=== PATIENT | female | born 1940 | race Caucasian/White ===

== ENCOUNTER → 2016-11-28 | Outpatient (REF) | payer MEDICARE ==
[2016-11-28 13:47] LABS: TOTAL PROTEIN 6.7 GM/DL (6.4-8.2)
[2016-11-30 12:11] LABS: ALBUMIN 3.89 GM/DL (3.29-5.55); GAMMA GLOBULIN % 11.6 % (11.1-18.8)
== END ==
LOC: M LAB REF 13:05
PROVIDERS: ATTEND Internal Medicine Medical Oncology
DX: D47.2 Monoclonal gammopathy (principal)

== ENCOUNTER → 2017-08-06 | Outpatient (CLI) | payer MEDICARE ==
[2017-08-06 17:42] LABS: BASO # 0.1 10^3/uL (0.0-0.2); BASO % 0.8 % (0.0-1.0); EOS # 0.3 10^3/uL (0.0-0.50); EOS % 4.6 % (0.0-3.0); IMMATURE GRANULOCYTE % 0.3 % (0-0); LYMPH # 1.1 10^3/uL (1.5-4.5); LYMPH % 18.2 % (24.0-44.0); MEAN CORPUSCULAR HEMOGLOBIN 28.3 pg (27.0-33.0); MEAN CORPUSCULAR HGB CONC 31.1 g/dl (32.0-36.5); MONO # 0.4 10^3/uL (0.0-0.8); MONO % 7.5 % (0.0-5.0); NEUTROPHILS % 68.6 % (36.0-66.0); PLATELET COUNT, AUTOMATED 221 10^3/uL (150-450); RED CELL DISTRIBUTION WIDTH 13.8 % (11.5-14.5); WHITE BLOOD COUNT 5.9 10^3/uL (4.0-10.0)
[2017-08-06 17:48] LABS: ALBUMIN 3.7 GM/DL (3.2-5.2); ALBUMIN/GLOBULIN RATIO 1.09 (1.00-1.93); ALKALINE PHOSPHATASE 56 U/L (45-117); ALT/SGPT 21 U/L (12-78); ANION GAP 9 MEQ/L (8-16); AST/SGOT 15 U/L (15-37); BILIRUBIN,TOTAL 0.7 MG/DL (0.2-1.0); BLOOD UREA NITROGEN 29 MG/DL (7-18); CARBON DIOXIDE LEVEL 28 MEQ/L (21-32); CHLORIDE LEVEL 102 MEQ/L (98-107); CREATININE FOR GFR 0.97 MG/DL (0.55-1.02); GLOMERULAR FILTRATION RATE 59.6 (>39); GLUCOSE, FASTING 90 MG/DL (83-110); IMMUNOGLOBULIN G 865 MG/DL (681-1648); IMMUNOGLOBULIN M 28.8 MG/DL (40-230); POTASSIUM SERUM 4.3 MEQ/L (3.5-5.1); SODIUM LEVEL 139 MEQ/L (136-145); TOTAL PROTEIN 7.1 GM/DL (6.4-8.2)
[2017-08-07 12:51] LABS: ALBUMIN % 57.7 % (55.8-66.1); GAMMA GLOBULIN % 11.6 % (11.1-18.8)
[2017-08-09 00:07] LABS: FREE KAPPA LIGHT CHAINS SERUM 15.6 mg/L (3.3-19.4); FREE LAMBDA LIGHT CHAINS SERUM 11.2 mg/L (5.7-26.3); KAPPA/LAMBDA RATIO SERUM 1.39 (0.26-1.65)
== END ==
LOC: M WUC 14:19
PROVIDERS: ATTEND Internal Medicine Medical Oncology
DX: D47.2 Monoclonal gammopathy (principal)

== ENCOUNTER 2017-11-01 11:07 | Observation (INO) | payer MEDICARE ==
[~2017-11-01] VITALS: Ht 162.6 cm; Wt 66.6 kg
[2017-11-01] MEDS ORDERED: SYMB16INH INH (11:24)
[2017-11-01] MEDS ORDERED: RANI150T PO (11:24)
[2017-11-01] MEDS ORDERED: ASPI81TA85 PO (11:24)
[2017-11-01] MEDS ORDERED: VITA1CAP40 PO (11:24)
[2017-11-01] MEDS ORDERED: TRAZ50TA11 PO (11:24)
[2017-11-01] MEDS ORDERED: IRBESARTAN-HCTZ (11:24)
[2017-11-01] MEDS ORDERED: OXYB10TA PO (11:24)
[2017-11-01 12:26] LABS: BASO % 0.8 % (0.0-1.0); EOS # 0.1 10^3/uL (0.0-0.50); IMMATURE GRANULOCYTE % 0.2 % (0-0); LYMPH # 0.6 10^3/uL (1.5-4.5); MEAN CORPUSCULAR HEMOGLOBIN 28.2 pg (27.0-33.0); MEAN CORPUSCULAR HGB CONC 31.8 g/dl (32.0-36.5); MEAN CORPUSCULAR VOLUME 88.6 fl (80.0-96.0); MONO # 0.6 10^3/uL (0.0-0.8); MONO % 11.8 % (0.0-5.0); NEUTROPHILS # 3.6 10^3/uL (1.8-7.7); NEUTROPHILS % 72.2 % (36.0-66.0); PLATELET COUNT, AUTOMATED 197 10^3/uL (150-450); RED CELL DISTRIBUTION WIDTH 13.7 % (11.5-14.5); WHITE BLOOD COUNT 4.9 10^3/uL (4.0-10.0)
[2017-11-01 12:44] LABS: ANION GAP 7 MEQ/L (8-16); BLOOD UREA NITROGEN 17 MG/DL (7-18); CALCIUM LEVEL 8.5 MG/DL (8.8-10.2); CARBON DIOXIDE LEVEL 29 MEQ/L (21-32); CHLORIDE LEVEL 108 MEQ/L (98-107); CREATININE FOR GFR 0.85 MG/DL (0.55-1.02); GLOMERULAR FILTRATION RATE > 60.0 (>39); GLUCOSE, FASTING 97 MG/DL (83-110); MAGNESIUM LEVEL 2.1 MG/DL (1.8-2.4); SODIUM LEVEL 144 MEQ/L (136-145)
[2017-11-01 12:49] LABS: FREE T4 1.16 NG/DL (0.76-1.46)
--- NOTE | 2017-11-01 13:15 | REP ---
Chest x-ray: Two views. History: Shortness of breath and cough. Comparison study: September 12, 2010. Findings: There are scattered granulomatous calcifications in the right lower lobe unchanged. The lungs remain slightly hyperinflated but clear. There is slight blunting of the posterior pleural angles seen on the lateral radiograph. The lateral pleural angles do not appear blunted. I cannot exclude very small amounts of bilateral pleural fluid. Heart is mildly enlarged. Cardiothoracic ratio is 14.6 cm over 26.6 cm. The aorta is calcific and tortuous. Pulmonary vasculature is not increased. EKG monitoring electrodes are seen. No infiltrate is noted. Impression: Mild cardiomegaly and hyperinflation. Slight blunting of the posterior pleural angles. Old granulomatous disease. Signed by Maurisio Campoverde MD 11/01/2017 03:59 P
[2017-11-01 13:30] VITALS: O2SAT 95
[2017-11-01] MEDS ORDERED: MECLIZINE 25 MG TABLET PO ONE (13:45)
[2017-11-01] MEDS ORDERED: NS 500 ML IV ONE (13:45)
--- NOTE | 2017-11-01 14:39 | REP ---
CT BRAIN WITHOUT CONTRAST: HISTORY: Dizziness and vertigo. Evaluate for CVA. No comparison study. FINDINGS: Digital lateral legislative analyst radiograph is unremarkable. Bone window settings demonstrate an intact bony calvarium. There is some vascular calcification. There is a large low density lesion in the left side of the skull base extending down to the anterior edge of the foramen magnum and up into the petrous apex. This low density lesion displays a convex margin towards the CP angle cistern on the left. No intracranial mass lesion is seen. No other bony destructive lesion is seen. This skull base lesion measures 3.2 cm in greatest diameter. Its margins are somewhat ill-defined. It encompasses the carotid canal and the jugular foramen region. There is no evidence of intracranial hemorrhage. No infarct is seen. There are mild small vessel changes in the periventricular white matter bilaterally. No extra-axial fluid collection seen. 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 Differential possibilities include metastasis, glomus tumor, myelomatous lesion. Consider radionuclide bone scan and MRI scanning without and with IV gadolinium. Signed by Maurisio Campoverde MD 11/01/2017 04:00 P
[2017-11-01] MEDS ORDERED: LORazepam 2 MG/ML VIAL (J2060) IV ONE (15:00)
[2017-11-01] MEDS ORDERED: ONDANSETRON 4MG/2ML VIAL (J2405) IV PRN (15:15)
[2017-11-01] MEDS ORDERED: BISACODYL 5 MG TAB PO PRN (15:15)
[2017-11-01] MEDS ORDERED: ZINC50TA PO (15:17)
[2017-11-01] MEDS ORDERED: MAGN400T5 PO (15:17)
[2017-11-01] MEDS ORDERED: VITMTA PO (15:17)
--- NOTE | 2017-11-01 15:48 | HPEPDOC ---
[facility] Medical History & Physical Date of Admission Nov 01, 2017 History and Physical ATTENDING: Dr. jaimes PCP: Dr Blanca Clark [facility] Dr Hebert. [employer] Dr Peralta CC: vertigo HPI: 77yoF who reports to ED with vertigo. Reports dizziness and weakness since sunday with nausea and diarrhea past 24 hrs. No vomiting. Pt states mild PACE this AM, resolved. States she had neck pain a few days ago, resolved currently. No vision changes, dysarthria, dysphagia, weakness, paresthesia. Denies any fevers, chills, CP, SOB, cough, palpitations, abdominal pain, changes bladder habits. Upon presentation to the hospital the patient was found to have Vertigo/weakness , thus the hospitalist team was consulted. PMHx: OAB COPD GERD anemia- Follows yearly with Dr Hebert. HTN. Follows with Dr Peralta PSHX: B/L TL SOCHX: [facility] Marital Status: Kids: x 1 Tobacco use: denies ETOH: denies Advanced directives: none FAMHX: Siblings: Alive, unknown Children: Alive, well ROS: As noted in HPI, otherwise 11pt ROS of systems reviewed and unremarkable. PE: GEN: 77yoF, appears stated age. Well-nourished, well developed. No acute distress. Alert and oriented x 3. Pleasant, interactive. HEENT: Normocephalic, atraumatic. Pupils are equal, round, and reactive to light. Extraocular movements are intact. No nystagmus appreciated. Sclera are nonicteric. Conjunctiva without injection. Nose midline. Nasal turbinates without bogginess. No facial asymmetry. Moist mucous membranes. . Pharynx pink and moist. Neck supple, trachea midline. No lymphadenopathy or thyromegaly appreciated. CHEST: Regular rate and rhythm, +S1, +S2 LUNGS: Clear to auscultation bilaterally. No wheezes, rales, or rhonchi. Breathing appears symmetric and easy. Patient is speaking in full sentences. ABD: Round, soft, non-tender, non-distended. +Bowel sounds throughout. No rebound or guarding. No costovertebral angle tenderness. EXT: Pulses 2+ bilaterally dorsalis pedis and radial. No lower extremity edema appreciated. SKIN: Bandera, dry, warm. No rashes. NEURO: Alert and oriented x 3. Cranial nerves III-XII are intact. No focal deficits appreciated. CXR: 11/01/17 Mild cardiomegaly and hyperinflation. Slight blunting of the posterior pleural angles. Old granulomatous disease CT: There is a 3 cm lytic destructive lesion in the skull base on the left involving the clivus and petrous bone and the anterior margin of the foramen magnum. Differential possibilities include metastasis, glomus tumor, myelomatous lesion. Consider radionuclide bone scan and MRI scanning without and with IV gadolinium. EKG: Flu screen neg. A&P: 77yoF who reports to ED with vertigo. Reports dizziness and weakness since sunday with nausea and diarrhea past 24 hrs. Pt states mild PACE this AM, resolved. States she had neck pain a few days ago, resolved currently. No vision changes, dysarthria, dysphagia, weakness, paresthesia. 1. The patient will be admitted to M/S to Dr. Jaimes's service.Pt is discussed with Dr Ramirez. 2. vertigo. IVF x 1 liter in ED. Meclizine x 1 dose and Pt states sx better. IV Zofran as needed. 3. Weakness. PT eval pending. 4. Lytic lesion skull base. MRI with and W/O pending at this time. 5. OAB. Ditropan. 6. COPD. Cont Symbicort, albuterol as needed. 7. GERD. H2 kaylee. 8. Hypomag. Supplement. Mag level 2.1. 9. H/O anemia. Follows with Dr Hebert. 10. HTN. ASA 81mg daily. Follows with Dr Peralta. DVT prophylaxis. lovenox. The patient is a Full code Vital Signs Vital Signs Date Time Temp Pulse Resp B/P (MAP) Pulse Ox O2 Delivery O2 Flow Rate FiO2 11/01/17 15:10 196/85 (122) 11/01/17 14:40 58 95 11/01/17 13:30 Room Air 11/01/17 11:08 98.9 16 Laboratory Data Labs 24H Laboratory Tests 2 11/01/17 11:48: Immature Granulocyte % (Auto) 0.2H, White Blood Count 4.9, Red Blood Count 3.94L , Hemoglobin 11.1L, Hematocrit 34.9L, Mean Corpuscular Volume 88.6, Mean Corpuscular Hemoglobin 28.2, Mean Corpuscular Hemoglobin Concent 31.8L, Red Cell Distribution Width 13.7, Platelet Count 197, Neutrophils (%) (Auto) 72.2H, Lymphocytes (%) (Auto) 13.0L, Monocytes (%) (Auto) 11.8H, Eosinophils (%) (Auto ) 2.0, Basophils (%) (Auto) 0.8, Neutrophils # (Auto) 3.6, Lymphocytes # (Auto) 0.6L, Monocytes # (Auto) 0.6, Eosinophils # (Auto) 0.1, Basophils # (Auto) 0.0, Immature Granulocyte # (Auto) 0.0, Nucleated Red Blood Cells % (auto) 0.0, Anion Gap 7L, Glomerular Filtration Rate > 60.0, Blood Urea Nitrogen 17, Creatinine 0.85, Sodium Level 144, Potassium Level 4.0, Chloride Level 108H, Carbon Dioxide Level 29, Calcium Level 8.5L, Total Creatine Kinase 47, Magnesium Level 2.1, Creatine Kinase MB 1.0, Creatine Kinase MB Relative Index 2.12, Troponin I < 0.02, Thyroid Stimulating Hormone (TSH) 4.810H, Free Thyroxine 1.16 CBC/BMP Laboratory Tests 11/01/17 11:48 Red Blood Count 3.94 L, Mean Corpuscular Volume 88.6, Mean Corpuscular Hemoglobin 28.2, Mean Corpuscular Hemoglobin Concent 31.8 L, Red Cell Distribution Width 13.7, Neutrophils (%) (Auto) 72.2 H, Lymphocytes (%) (Auto) 13.0 L, Monocytes (%) (Auto) 11.8 H, Eosinophils (%) (Auto) 2.0, Basophils (%) ( Auto) 0.8, Neutrophils # (Auto) 3.6, Lymphocytes # (Auto) 0.6 L, Monocytes # ( Auto) 0.6, Eosinophils # (Auto) 0.1, Basophils # (Auto) 0.0, Calcium Level 8.5 L , Total Creatine Kinase 47 Microbiology Microbiology 11/01/17 Influenza Virus Type A Antigen - Final, Complete 11/01/17 Influenza Virus Type B Antigen - Final, Complete Home Medications Scheduled Aspirin (Aspir-81) 81 Mg Tab, 81 MG PO DAILY Budesonide/Formoterol (Symbicort 160-4.5 Mcg/Act) 60 Puff/Inhaler Aers, 1 PUFF INH BID Ergocalciferol (Vitamin D) 50,000 Unit Cap, 50,000 UNITS PO ASDIRECTED TAKES EVERY OTHER SUNDAY Magnesium Oxide (Magnesium Oxide 400) 400 Mg Tab, 400 MG PO DAILY Multivitamins *[facility] STOCKED* (Thera M Plus *[facility] STOCKED*) 1 Tab Tab, 1 TAB PO DAILY Oxybutynin Chloride (Oxybutynin Chloride ER) 10 Mg Tab, 10 MG PO DAILY Ranitidine HCl (Ranitidine HCl) 150 Mg Tab, 1 TAB PO BID Trazodone HCl (Trazodone HCl) 50 Mg Tab, 150 MG PO QHS Zinc (Zinc) 50 Mg Tab, 50 MG PO DAILY Allergies Coded Allergies: Lisinopril (Verified Adverse Reaction, Mild, DRY COUGH, 11/01/17) Gloria Mcgee Nov 01, 2017 15:48
[2017-11-01] MEDS ORDERED: PROHANCE 279.3MG/ML 15ML VIAL (A9576) As Ordered ONE (16:42)
[2017-11-01 18:51] VITALS: BP 143/65
--- NOTE | 2017-11-01 19:34 | REP ---
MRI BRAIN WITH AND WITHOUT CONTRAST: TECHNIQUE: Multiple sequences obtained in the axial, coronal and sagittal planes prior to and following the intravenous administration of 12 mL ProHance. Correlation made with CT brain today as well as PET/CT 12/08/2010. In the region of the left petrous apex, there is an oval mass which demonstrates hyperintense signal on both T1 and T2-weighted images. There is some central low signal on T2 which may represent hemosiderin. It is somewhat lobulated and measures 2.5 cm in maximum diameter. There is surrounding smooth erosion of the temporal bone. Anteriorly, erosion is seen up to the carotid canal. The mass extends slightly into the left internal auditory canal. There does not appear to be significant enhancement of the mass although there may be some thin rim enhancement. No abnormal signal is seen in the adjacent brain stem. Cerebellum is normal in appearance. There is mid diffuse cerebral atrophy. There are patchy areas of T2 and FLAIR signal hyperintensity in the periventricular white matter bilaterally compatible with chronic small vessel ischemic changes. No acute infarct is seen on ADC or DWI images. Globes are intact. There is mild diffuse mucosal thickening in the paranasal sinuses diffusely. IMPRESSION: Oval mass at the left petrous apex with associated erosion of the temporal bone. Erosion is seen up to the carotid canal on the left at the anterior aspect of the mass. There is mild extension into the left internal auditory canal. 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 There are periventricular small vessel ischemic changes and gliosis which appear chronic. No acute infarct is seen. Mild diffuse mucosal thickening in the paranasal sinuses. Signed by Cristino Babin MD 11/01/2017 08:46 P
[2017-11-01] MEDS: SENOKOT S TAB PO SCH (19:42)
[2017-11-01] MEDS: FAMOTIDINE 20 MG TAB PO SCH (19:42)
[2017-11-01] MEDS: SYMBICORT 160/4.5MCG INHALER 6GM INH SCH (20:36)
[2017-11-01] MEDS ORDERED: MECLIZINE 25 MG TABLET PO PRN (21:30)
[2017-11-01 22:00] VITALS: BP 143/67
[2017-11-02 06:00] VITALS: BP 149/72
[2017-11-02 07:25] LABS: BASO % 0.8 % (0.0-1.0); EOS # 0.1 10^3/uL (0.0-0.50); EOS % 2.3 % (0.0-3.0); IMMATURE GRANULOCYTE % 0.2 % (0-0); LYMPH # 0.8 10^3/uL (1.5-4.5); LYMPH % 14.5 % (24.0-44.0); MEAN CORPUSCULAR HGB CONC 31.8 g/dl (32.0-36.5); MEAN CORPUSCULAR VOLUME 88.1 fl (80.0-96.0); MONO # 0.6 10^3/uL (0.0-0.8); MONO % 11.5 % (0.0-5.0); NEUTROPHILS # 3.8 10^3/uL (1.8-7.7); NEUTROPHILS % 70.7 % (36.0-66.0); PLATELET COUNT, AUTOMATED 195 10^3/uL (150-450); RED CELL DISTRIBUTION WIDTH 13.6 % (11.5-14.5); WHITE BLOOD COUNT 5.3 10^3/uL (4.0-10.0)
[2017-11-02 07:42] LABS: ANION GAP 7 MEQ/L (8-16); BLOOD UREA NITROGEN 17 MG/DL (7-18); CALCIUM LEVEL 8.6 MG/DL (8.8-10.2); CARBON DIOXIDE LEVEL 28 MEQ/L (21-32); CHLORIDE LEVEL 107 MEQ/L (98-107); CREATININE FOR GFR 0.92 MG/DL (0.55-1.02); GLOMERULAR FILTRATION RATE > 60.0 (>39); GLUCOSE, FASTING 85 MG/DL (83-110); POTASSIUM SERUM 4.1 MEQ/L (3.5-5.1); SODIUM LEVEL 142 MEQ/L (136-145)
[2017-11-02] MEDS ORDERED: ASPIRIN 81 MG ENTERIC TAB PO SCH (09:00)
[2017-11-02] MEDS ORDERED: ENOXAPARIN 40 MG/0.4 ML SYRINGE (J1650) SC SCH (09:00)
[2017-11-02] MEDS ORDERED: oxyBUTYnin *DITROPAN XL* 5 MG TABCR PO SCH (09:00)
[2017-11-02] MEDS ORDERED: MULTIVITAMINS/MINERALS THERAP 1 TAB PO SCH (09:00)
[2017-11-02] MEDS ORDERED: MAGNESIUM OXIDE 400 MG TAB (MAG-OX) PO SCH (09:00)
[2017-11-02] MEDS: SYMBICORT 160/4.5MCG INHALER 6GM INH SCH (09:25)
[2017-11-02] MEDS: FAMOTIDINE 20 MG TAB PO SCH (09:40)
[2017-11-02] MEDS: SENOKOT S TAB PO SCH (09:41)
[2017-11-02 10:00] VITALS: BP 143/66
--- NOTE | 2017-11-02 12:52 | DS.PDOC ---
Discharge Summary General Date of Admission Nov 01, 2017 at 15:10 Date of Discharge Nov 02, 2017 Primary Care Physician: A Attending Physician: VERA DUPREE DO Specialist/Consultants Involve PCP: Eduardo Israel Heme/Onc: Dr. Hebert Pond Supervisor: Dr. Peralta Discharge Summary CONSULTS: None PROCEDURES: None COMPLICATIONS: None ADMISSION / DISCHARGE DIAGNOSIS: 1. Dysequilibrium without spinning sensation or syncope 2. Generalized Weakness 3. OAB 4. COPD 5. GERD 6. anemia- Follows yearly with Dr Hebert. 7. HTN. Follows with Dr Peralta BRIEF HOSPITAL COURSE: 77 yo female admitted for presumed dizziness that this morning she tells me it is more of a whooziness, dysequalibrium sensation without the sensation of room spinning, syncope, falls or LOC. She feels her symptoms have resolved this morning and she is back to her baseline. She is not orthostatic, Head CT and Cxr were unremarkable. CBC without acute changes, chemestries and cardiac enzymes negative. Her Brain MRI was read as: Oval mass at the left petrous apex with associated erosion of the temporal bone. Erosion is seen up to the carotid canal on the left at the anterior aspect of the mass. There is mild extension into the left internal auditory canal. 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 There are periventricular small vessel ischemic changes and gliosis which appear chronic. No acute infarct is seen. Mild diffuse mucosal thickening in the paranasal sinuses. I discussed these results with our ENT and given that she is currently asymptomatic and passed PT home safety, we will plan on discharging her home and she can follow up with her PCP. She should be referred to [facility] for ongoing monitoring and further evaluation. But, she has no immediate need for surgical intervention. PHYSICAL EXAMINATION ON DISCHARGE: VITAL SIGNS: Please see below. GENERAL: NAD, A&OX3 HEENT: PERRLA, throat clear, neck supple, no JVD CARDIOVASCULAR EXAMINATION: RRR RESPIRATORY EXAMINATION: CTA bilaterally ABDOMINAL EXAMINATION: soft, NT/ND, normoactive bowel sounds EXTREMITIES: no edema no calf tenderness SKIN: intact NEUROLOGICAL EXAMINATION: CN'S II-XII grossly intact PSYCHIATRIC EXAMINATION: stable DISCHARGE MEDICATIONS: See below DISCHARGE CONDITION: Good DISPOSITION: D/C to home DISCHARGE INSTRUCTIONS: Activity: as tolerated Diet: regular Follow up: 1-2 weeks with PCP (will need referral to [facility]NT), keep regular appointments with Dr. Carmona and Dr. Peralta Seek medical attention should symptoms worsen or progress. Voiced understanding by patient and/or caregiver. TRANSITION OF CARE ISSUES:May need further evaluation and referral by [facility] at a future date. TIME SPENT ON DISCHARGE: greater than 35 minutes Please CC: PCP: Dr. Rios, [facility] Heme/Onc: Dr. Hebert Pond Supervisor: Dr. Peralta Vital Signs/I&Os Vital Signs Date Time Temp Pulse Resp B/P (MAP) Pulse Ox O2 Delivery O2 Flow Rate FiO2 11/02/17 10:00 98.3 68 16 143/66 (91) 95 Room Air I&O- Last 24 Hours up to 6 AM 11/02/17 06:00 Intake Total 480 ml Output Total 800 ml Balance -320 ml Laboratory Data Labs 24H Laboratory Tests 2 11/02/17 07:14: Immature Granulocyte % (Auto) 0.2H, White Blood Count 5.3, Red Blood Count 4.03 , Hemoglobin 11.3L, Hematocrit 35.5L, Mean Corpuscular Volume 88.1, Mean Corpuscular Hemoglobin 28.0, Mean Corpuscular Hemoglobin Concent 31.8L, Red Cell Distribution Width 13.6, Platelet Count 195, Neutrophils (%) (Auto) 70.7H, Lymphocytes (%) (Auto) 14.5L, Monocytes (%) (Auto) 11.5H, Eosinophils (%) (Auto ) 2.3, Basophils (%) (Auto) 0.8, Neutrophils # (Auto) 3.8, Lymphocytes # (Auto) 0.8L, Monocytes # (Auto) 0.6, Eosinophils # (Auto) 0.1, Basophils # (Auto) 0.0, Immature Granulocyte # (Auto) 0.0, Nucleated Red Blood Cells % (auto) 0.0, Anion Gap 7L, Glomerular Filtration Rate > 60.0, Blood Urea Nitrogen 17, Creatinine 0.92, Sodium Level 142, Potassium Level 4.1, Chloride Level 107, Carbon Dioxide Level 28, Calcium Level 8.6L CBC/BMP Laboratory Tests 11/02/17 07:14 Red Blood Count 4.03, Mean Corpuscular Volume 88.1, Mean Corpuscular Hemoglobin 28.0, Mean Corpuscular Hemoglobin Concent 31.8 L, Red Cell Distribution Width 13.6, Neutrophils (%) (Auto) 70.7 H, Lymphocytes (%) (Auto) 14.5 L, Monocytes (% ) (Auto) 11.5 H, Eosinophils (%) (Auto) 2.3, Basophils (%) (Auto) 0.8, Neutrophils # (Auto) 3.8, Lymphocytes # (Auto) 0.8 L, Monocytes # (Auto) 0.6, Eosinophils # (Auto) 0.1, Basophils # (Auto) 0.0, Calcium Level 8.6 L Microbiology Microbiology 11/01/17 Influenza Virus Type A Antigen - Final, Complete 11/01/17 Influenza Virus Type B Antigen - Final, Complete Discharge Medications Scheduled Aspirin (Aspir-81) 81 Mg Tab, 81 MG PO DAILY, (Reported) Budesonide/Formoterol (Symbicort 160-4.5 Mcg/Act) 60 Puff/Inhaler Aers, 1 PUFF INH BID, (Reported) Ergocalciferol (Vitamin D) 50,000 Unit Cap, 50,000 UNITS PO ASDIRECTED, ( Reported) TAKES EVERY OTHER SUNDAY Magnesium Oxide (Magnesium Oxide 400) 400 Mg Tab, 400 MG PO DAILY, (Reported) Multivitamins *[facility] STOCKED* (Thera M Plus *[facility] STOCKED*) 1 Tab Tab, 1 TAB PO DAILY, (Reported) Oxybutynin Chloride (Oxybutynin Chloride ER) 10 Mg Tab, 10 MG PO DAILY, ( Reported) Ranitidine HCl (Ranitidine HCl) 150 Mg Tab, 1 TAB PO BID, (Reported) Trazodone HCl (Trazodone HCl) 50 Mg Tab, 150 MG PO QHS, (Reported) Zinc (Zinc) 50 Mg Tab, 50 MG PO DAILY, (Reported) Allergies Coded Allergies: Lisinopril (Verified Adverse Reaction, Mild, DRY COUGH, 11/01/17) VERA DUPREE DO Nov 02, 2017 12:52
--- NOTE | 2017-11-02 16:40 | ECGEPIP ---
Stationary ECG Study [facility] - ED Test Date: 2017-11-01 Pat Name: LINDA GREGORY Department: Room: - Gender: F Anesthesia Attending: andrea : 1940 Requested By: Vivek Guzman Order Number: [id number] Reading MD: Steffanie Murphy Measurements Intervals [place] Rate: 48 P: 69 NC: 149 QRS: 59 QRSD: 95 T: 61 QT: 466 QTc: 417 Interpretive Statements SINUS BRADYCARDIA NSTTW ABNORMALITY NO PRIOR FOR COMPARISON Electronically Signed On 11-02-2017 16:40:35 EST by Steffanie Murphy
[2017-11-04] MEDS ORDERED: DOXY100T16 PO (19:41)
[2017-11-04] MEDS ORDERED: IRBESARTAN-HCTZ PO (19:49)
[2017-11-04] MEDS ORDERED: LOPE2CA PO (19:49)
[2017-11-04] MEDS ORDERED: BIOTCAP PO (19:49)
[2017-11-04] MEDS ORDERED: BIOT50004 PO (22:51)
[2017-11-04] MEDS ORDERED: CORITAB5 PO (22:59)
== END 2017-11-02 13:35 | disposition home or self-care (01) ==
LOC: M ED 11:07 → M ED INP 15:10 → M MS5PR 18:39
PROVIDERS: ADMIT Hospitalist; ATTEND Internal Medicine Nephrology
DX: R42 Dizziness and giddiness (principal); M62.81 Muscle weakness (generalized); E83.42 Hypomagnesemia; J44.9 Chronic obstructive pulmonary disease, unspecified; D48.0 Neoplasm of uncertain behavior of bone and articular cartilage; I10 Essential (primary) hypertension; D64.9 Anemia, unspecified; K21.9 Gastro-esophageal reflux disease without esophagitis; N32.81 Overactive bladder; D47.2 Monoclonal gammopathy; Z87.891 Personal history of nicotine dependence; Z88.8 Allergy status to other drugs, medicaments and biological substances; Z79.82 Long term (current) use of aspirin; Z79.899 Other long term (current) drug therapy
CPT/HCPCS: 36415; 70450; 70553; 71020; 80048; 82550; 82553; 83735; 84439; 84443; 84484; 85025; 87804; 93005; 93041; 94640; 94760; 96374; 97162; 99285; A9576; G0378; J2060

== ENCOUNTER 2017-11-04 19:27 | Inpatient (IN) | payer MEDICARE ==
[2017-11-04 20:55] LABS: BASO % 0.5 % (0.0-1.0); EOS % 0.4 % (0.0-3.0); IMMATURE GRANULOCYTE % 0.2 % (0-0); LYMPH # 0.5 10^3/uL (1.5-4.5); LYMPH % 8.2 % (24.0-44.0); MEAN CORPUSCULAR HEMOGLOBIN 28.3 pg (27.0-33.0); MEAN CORPUSCULAR HGB CONC 32.1 g/dl (32.0-36.5); MONO # 0.4 10^3/uL (0.0-0.8); MONO % 7.7 % (0.0-5.0); NEUTROPHILS # 4.5 10^3/uL (1.8-7.7); PLATELET COUNT, AUTOMATED 179 10^3/uL (150-450); RED CELL DISTRIBUTION WIDTH 13.9 % (11.5-14.5); WHITE BLOOD COUNT 5.5 10^3/uL (4.0-10.0)
[2017-11-04 21:21] LABS: ANION GAP 9 MEQ/L (8-16); BLOOD UREA NITROGEN 20 MG/DL (7-18); CALCIUM LEVEL 8.3 MG/DL (8.8-10.2); CARBON DIOXIDE LEVEL 28 MEQ/L (21-32); CHLORIDE LEVEL 105 MEQ/L (98-107); CREATININE FOR GFR 0.77 MG/DL (0.55-1.02); GLOMERULAR FILTRATION RATE > 60.0 (>39); GLUCOSE, FASTING 111 MG/DL (83-110); POTASSIUM SERUM 3.8 MEQ/L (3.5-5.1); SODIUM LEVEL 142 MEQ/L (136-145)
[2017-11-04 21:24] LABS: LACTIC ACID SEPSIS PROTOCOL 0.8 MMOL/L (0.4-2.0)
[2017-11-04] MEDS: ACETAMINOPHEN 325 MG TAB PO (21:32)
[2017-11-04 21:53] LABS: ABG BASE EXCESS 1.3 (-2.0-2.0); ABG HCO3 24.8 MEQ/L (22.0-26.0); ABG PARTIAL PRESSURE CO2 35.7 mmHg (35.0-45.0); ABG PARTIAL PRESSURE O2 55.4 mmHg (75.0-100.0); ABG STANDARD HCO3 25.5 MEQ/L (22.0-26.0); ABG TOTAL CO2 25.9 MEQ/L (23.0-31.0)
[2017-11-04] MEDS ORDERED: ISOVUE-370 76% 100ML VIAL (Q9967) As Ordered (22:38)
[2017-11-04] MEDS: NS 500 ML IV (22:42)
[2017-11-04] MEDS: CIPROFLOXACIN 400 MG in APPROPRIATE DILUENT 1 EA IV (22:42)
[2017-11-05] MEDS ORDERED: ALBUTEROL SULFATE 2.5 MG/0.5 ML INH NEB SOLN INH (00:45)
[2017-11-05] MEDS ORDERED: ACETAMINOPHEN TAB 650MG DOSE (2X325MG) PO (00:45)
[2017-11-05] MEDS ORDERED: ONDANSETRON 4MG/2ML VIAL (J2405) IV (00:45)
[2017-11-05] MEDS: traZODone 50 MG TAB PO ×2 (02:35→20:12)
[2017-11-05] MEDS: FAMOTIDINE 20 MG TAB PO ×3 (02:36→20:13)
[2017-11-05] MEDS: CEFTRIAXONE SOD 2 GM in APPROPRIATE DILUENT 1 EA IV (02:49)
[2017-11-05 06:59] LABS: BASO % 0.4 % (0.0-1.0); EOS % 0.6 % (0.0-3.0); IMMATURE GRANULOCYTE % 0.4 % (0-0); LYMPH # 0.7 10^3/uL (1.5-4.5); LYMPH % 15.2 % (24.0-44.0); MEAN CORPUSCULAR HEMOGLOBIN 27.7 pg (27.0-33.0); MEAN CORPUSCULAR HGB CONC 31.2 g/dl (32.0-36.5); MEAN CORPUSCULAR VOLUME 88.7 fl (80.0-96.0); MONO # 0.6 10^3/uL (0.0-0.8); MONO % 11.9 % (0.0-5.0); NEUTROPHILS # 3.5 10^3/uL (1.8-7.7); NEUTROPHILS % 71.5 % (36.0-66.0); PLATELET COUNT, AUTOMATED 181 10^3/uL (150-450); RED CELL DISTRIBUTION WIDTH 14.1 % (11.5-14.5); WHITE BLOOD COUNT 4.9 10^3/uL (4.0-10.0)
[2017-11-05] MEDS: IPRATROPIUM 0.5MG/ALBUTEROL 2.5MG INH SOL UD 3ML (DUONEB)(J7620) NEB ×4 (07:10→21:18)
[2017-11-05 07:16] LABS: ALBUMIN 2.9 GM/DL (3.2-5.2); ALBUMIN/GLOBULIN RATIO 0.83 (1.00-1.93); ALKALINE PHOSPHATASE 51 U/L (45-117); ALT/SGPT 20 U/L (12-78); ANION GAP 6 MEQ/L (8-16); AST/SGOT 18 U/L (7-37); BILIRUBIN,TOTAL 0.4 MG/DL (0.2-1.0); BLOOD UREA NITROGEN 16 MG/DL (7-18); CARBON DIOXIDE LEVEL 27 MEQ/L (21-32); CHLORIDE LEVEL 105 MEQ/L (98-107); CREATININE FOR GFR 0.74 MG/DL (0.55-1.02); GLOMERULAR FILTRATION RATE > 60.0 (>39); GLUCOSE, FASTING 98 MG/DL (83-110); POTASSIUM SERUM 3.7 MEQ/L (3.5-5.1); SODIUM LEVEL 138 MEQ/L (136-145); TOTAL PROTEIN 6.4 GM/DL (6.4-8.2)
[2017-11-05] MEDS: oxyBUTYnin *DITROPAN XL* 5 MG TABCR PO (09:10)
[2017-11-05] MEDS: ASPIRIN 81 MG ENTERIC TAB PO (09:10)
[2017-11-05] MEDS: MULTIVITAMINS/MINERALS THERAP 1 TAB PO (09:11)
[2017-11-05] MEDS: AZITHROMYCIN 250 MG TAB PO (09:11)
[2017-11-05] MEDS: MAGNESIUM OXIDE 400 MG TAB (MAG-OX) PO (09:11)
[2017-11-05] MEDS: ENOXAPARIN 40 MG/0.4 ML SYRINGE (J1650) SC (09:14)
[2017-11-06] MEDS: CEFTRIAXONE SOD 2 GM in APPROPRIATE DILUENT 1 EA IV (01:40)
[2017-11-06 07:10] LABS: MEAN CORPUSCULAR HEMOGLOBIN 27.4 pg (27.0-33.0); MEAN CORPUSCULAR HGB CONC 31.1 g/dl (32.0-36.5); MEAN CORPUSCULAR VOLUME 88.2 fl (80.0-96.0); PLATELET COUNT, AUTOMATED 166 10^3/uL (150-450); RED CELL DISTRIBUTION WIDTH 14.1 % (11.5-14.5); WHITE BLOOD COUNT 5.7 10^3/uL (4.0-10.0)
[2017-11-06 07:32] LABS: ANION GAP 7 MEQ/L (8-16); BLOOD UREA NITROGEN 14 MG/DL (7-18); CALCIUM LEVEL 8.6 MG/DL (8.8-10.2); CARBON DIOXIDE LEVEL 28 MEQ/L (21-32); CHLORIDE LEVEL 105 MEQ/L (98-107); CREATININE FOR GFR 0.75 MG/DL (0.55-1.02); GLOMERULAR FILTRATION RATE > 60.0 (>39); GLUCOSE, FASTING 98 MG/DL (83-110); MAGNESIUM LEVEL 2.1 MG/DL (1.8-2.4); POTASSIUM SERUM 3.9 MEQ/L (3.5-5.1); SODIUM LEVEL 140 MEQ/L (136-145)
[2017-11-06] MEDS: IPRATROPIUM 0.5MG/ALBUTEROL 2.5MG INH SOL UD 3ML (DUONEB)(J7620) NEB ×4 (08:41→20:58)
[2017-11-06] MEDS: ASPIRIN 81 MG ENTERIC TAB PO (09:07)
[2017-11-06] MEDS: AZITHROMYCIN 250 MG TAB PO (09:07)
[2017-11-06] MEDS: ENOXAPARIN 40 MG/0.4 ML SYRINGE (J1650) SC (09:07)
[2017-11-06] MEDS: MAGNESIUM OXIDE 400 MG TAB (MAG-OX) PO (09:07)
[2017-11-06] MEDS: FAMOTIDINE 20 MG TAB PO ×2 (09:07→22:34)
[2017-11-06] MEDS: MULTIVITAMINS/MINERALS THERAP 1 TAB PO (09:07)
[2017-11-06] MEDS: oxyBUTYnin *DITROPAN XL* 5 MG TABCR PO (09:08)
[2017-11-06] MEDS: methylPREDNISolone INJ 40 MG/1 ML VIAL (J2920) IV ×2 (11:38→22:34)
[2017-11-06] MEDS: guaiFENesin SYRUP 200 MG/10 ML UDC PO (16:34)
[2017-11-06] MEDS: traZODone 50 MG TAB PO (22:34)
[2017-11-07 06:46] LABS: MEAN CORPUSCULAR HGB CONC 31.8 g/dl (32.0-36.5); MEAN CORPUSCULAR VOLUME 88.1 fl (80.0-96.0); PLATELET COUNT, AUTOMATED 184 10^3/uL (150-450); RED CELL DISTRIBUTION WIDTH 13.6 % (11.5-14.5); WHITE BLOOD COUNT 6.8 10^3/uL (4.0-10.0)
[2017-11-07 06:55] LABS: ANION GAP 4 MEQ/L (8-16); BLOOD UREA NITROGEN 16 MG/DL (7-18); CALCIUM LEVEL 8.9 MG/DL (8.8-10.2); CARBON DIOXIDE LEVEL 31 MEQ/L (21-32); CHLORIDE LEVEL 104 MEQ/L (98-107); CREATININE FOR GFR 0.71 MG/DL (0.55-1.02); GLOMERULAR FILTRATION RATE > 60.0 (>39); GLUCOSE, FASTING 149 MG/DL (83-110); MAGNESIUM LEVEL 2.2 MG/DL (1.8-2.4); POTASSIUM SERUM 4.4 MEQ/L (3.5-5.1); SODIUM LEVEL 139 MEQ/L (136-145)
[2017-11-07] MEDS: IPRATROPIUM 0.5MG/ALBUTEROL 2.5MG INH SOL UD 3ML (DUONEB)(J7620) NEB ×4 (07:24→19:06)
[2017-11-07] MEDS: ENOXAPARIN 40 MG/0.4 ML SYRINGE (J1650) SC (09:00)
[2017-11-07] MEDS: MULTIVITAMINS/MINERALS THERAP 1 TAB PO (10:30)
[2017-11-07] MEDS: oxyBUTYnin *DITROPAN XL* 5 MG TABCR PO (10:30)
[2017-11-07] MEDS: ASPIRIN 81 MG ENTERIC TAB PO (10:30)
[2017-11-07] MEDS: MAGNESIUM OXIDE 400 MG TAB (MAG-OX) PO (10:31)
[2017-11-07] MEDS: methylPREDNISolone INJ 40 MG/1 ML VIAL (J2920) IV ×2 (10:31→22:27)
[2017-11-07] MEDS: FAMOTIDINE 20 MG TAB PO ×2 (10:31→20:33)
[2017-11-07] MEDS: traZODone 50 MG TAB PO (20:33)
[2017-11-08 07:09] LABS: MEAN CORPUSCULAR HEMOGLOBIN 27.9 pg (27.0-33.0); MEAN CORPUSCULAR HGB CONC 31.3 g/dl (32.0-36.5); MEAN CORPUSCULAR VOLUME 89.2 fl (80.0-96.0); PLATELET COUNT, AUTOMATED 223 10^3/uL (150-450); WHITE BLOOD COUNT 12.7 10^3/uL (4.0-10.0)
[2017-11-08 07:29] LABS: ANION GAP 6 MEQ/L (8-16); BLOOD UREA NITROGEN 25 MG/DL (7-18); CALCIUM LEVEL 8.7 MG/DL (8.8-10.2); CARBON DIOXIDE LEVEL 28 MEQ/L (21-32); CHLORIDE LEVEL 106 MEQ/L (98-107); CREATININE FOR GFR 0.95 MG/DL (0.55-1.02); GLOMERULAR FILTRATION RATE > 60.0 (>39); GLUCOSE, FASTING 143 MG/DL (83-110); MAGNESIUM LEVEL 2.2 MG/DL (1.8-2.4); POTASSIUM SERUM 4.8 MEQ/L (3.5-5.1); SODIUM LEVEL 140 MEQ/L (136-145)
[2017-11-08] MEDS: IPRATROPIUM 0.5MG/ALBUTEROL 2.5MG INH SOL UD 3ML (DUONEB)(J7620) NEB ×4 (07:50→20:19)
[2017-11-08] MEDS: ASPIRIN 81 MG ENTERIC TAB PO (08:34)
[2017-11-08] MEDS: oxyBUTYnin *DITROPAN XL* 5 MG TABCR PO (08:34)
[2017-11-08] MEDS: MAGNESIUM OXIDE 400 MG TAB (MAG-OX) PO (08:34)
[2017-11-08] MEDS: FAMOTIDINE 20 MG TAB PO ×2 (08:34→20:51)
[2017-11-08] MEDS: MULTIVITAMINS/MINERALS THERAP 1 TAB PO (08:35)
[2017-11-08] MEDS: ENOXAPARIN 40 MG/0.4 ML SYRINGE (J1650) SC (08:37)
[2017-11-08] MEDS: methylPREDNISolone INJ 40 MG/1 ML VIAL (J2920) IV ×2 (12:25→23:21)
[2017-11-08] MEDS: traZODone 50 MG TAB PO (20:51)
[2017-11-09] MEDS: IPRATROPIUM 0.5MG/ALBUTEROL 2.5MG INH SOL UD 3ML (DUONEB)(J7620) NEB ×2 (07:07→11:18)
[2017-11-09 07:12] LABS: MEAN CORPUSCULAR HEMOGLOBIN 27.8 pg (27.0-33.0); MEAN CORPUSCULAR HGB CONC 31.7 g/dl (32.0-36.5); MEAN CORPUSCULAR VOLUME 87.7 fl (80.0-96.0); PLATELET COUNT, AUTOMATED 261 10^3/uL (150-450); WHITE BLOOD COUNT 12.4 10^3/uL (4.0-10.0)
[2017-11-09 07:26] LABS: ANION GAP 8 MEQ/L (8-16); BLOOD UREA NITROGEN 23 MG/DL (7-18); CALCIUM LEVEL 8.9 MG/DL (8.8-10.2); CARBON DIOXIDE LEVEL 27 MEQ/L (21-32); CHLORIDE LEVEL 105 MEQ/L (98-107); CREATININE FOR GFR 1.02 MG/DL (0.55-1.02); GLOMERULAR FILTRATION RATE 56.1 (>39); GLUCOSE, FASTING 132 MG/DL (83-110); MAGNESIUM LEVEL 2.4 MG/DL (1.8-2.4); POTASSIUM SERUM 4.8 MEQ/L (3.5-5.1); SODIUM LEVEL 140 MEQ/L (136-145)
[2017-11-09] MEDS: FAMOTIDINE 20 MG TAB PO (08:47)
[2017-11-09] MEDS: ENOXAPARIN 40 MG/0.4 ML SYRINGE (J1650) SC (08:47)
[2017-11-09] MEDS: ASPIRIN 81 MG ENTERIC TAB PO (08:48)
[2017-11-09] MEDS: MAGNESIUM OXIDE 400 MG TAB (MAG-OX) PO (08:48)
[2017-11-09] MEDS: oxyBUTYnin *DITROPAN XL* 5 MG TABCR PO (08:48)
[2017-11-09] MEDS: MULTIVITAMINS/MINERALS THERAP 1 TAB PO (08:48)
[2017-11-09] MEDS: methylPREDNISolone INJ 40 MG/1 ML VIAL (J2920) IV (11:12)
== END 2017-11-09 13:15 | disposition home or self-care (01) | DRG 202 ==
LOC: M ED INP 11-05 00:35 → M MS5PR 11-05 01:55 → M ED 19:27
DX: J20.5 Acute bronchitis due to respiratory syncytial virus (principal); J44.1 Chronic obstructive pulmonary disease with (acute) exacerbation; B97.4 Respiratory syncytial virus as the cause of diseases classified elsewhere; K21.9 Gastro-esophageal reflux disease without esophagitis; D64.9 Anemia, unspecified; I10 Essential (primary) hypertension; Z79.82 Long term (current) use of aspirin; Z79.899 Other long term (current) drug therapy; Z87.891 Personal history of nicotine dependence; G47.00 Insomnia, unspecified; N32.81 Overactive bladder

== ENCOUNTER → 2017-11-04 | Outpatient (REF) | payer MEDICARE ==
[~2017-11-04] MED LIST: ASPI81TA85 PO; BIOT50004 PO; BIOTCAP PO; CORITAB5 PO; DOXY100T16 PO; IRBESARTAN-HCTZ; IRBESARTAN-HCTZ PO; LOPE2CA PO; MAGN400T5 PO; OXYB10TA PO; RANI150T PO; SYMB16INH INH; TRAZ50TA11 PO; VITA1CAP40 PO; VITMTA PO; ZINC50TA PO
== END ==
LOC: M SFHCLERA 14:23
PROVIDERS: ATTEND Physician Assistant
DX: J44.1 Chronic obstructive pulmonary disease with (acute) exacerbation (principal)

== ENCOUNTER 2018-03-20 06:44 | Day surgery (SDC) | payer MEDICARE ==
[2018-03-20] MEDS: NS 1,000 ML IV (07:06)
[2018-03-20] MEDS ORDERED: PROPOFOL 200 MG/20 ML VIAL As Ordered (07:50)
[2018-03-20] MEDS ORDERED: LIDOCAINE 2% INJ 100 MG/5 ML SDV (FOR ANES.) As Ordered (07:50)
== END 2018-03-20 08:32 | disposition home or self-care (01) ==
LOC: M OPP 06:44
DX: Z12.11 Encounter for screening for malignant neoplasm of colon (principal); Z86.010 Personal history of colon polyps; Z80.0 Family history of malignant neoplasm of digestive organs; D12.2 Benign neoplasm of ascending colon; D12.5 Benign neoplasm of sigmoid colon; K57.30 Diverticulosis of large intestine without perforation or abscess without bleeding; I10 Essential (primary) hypertension; R19.7 Diarrhea, unspecified; K21.9 Gastro-esophageal reflux disease without esophagitis; D47.2 Monoclonal gammopathy; M19.90 Unspecified osteoarthritis, unspecified site; Z78.0 Asymptomatic menopausal state; J44.9 Chronic obstructive pulmonary disease, unspecified; Z87.891 Personal history of nicotine dependence; Z88.8 Allergy status to other drugs, medicaments and biological substances; Z79.82 Long term (current) use of aspirin; Z79.899 Other long term (current) drug therapy; Z80.3 Family history of malignant neoplasm of breast
CPT/HCPCS: 45380

== ENCOUNTER → 2018-04-15 | Outpatient (REF) | payer MEDICARE ==
[2018-04-15 19:41] LABS: IMMUNOGLOBULIN G 695 MG/DL (681-1648)
[2018-04-16 14:48] LABS: ALBUMIN 4.09 GM/DL (3.29-5.55); ALBUMIN % 58.4 % (55.8-66.1); ALPHA-1-GLOBULIN % 4.1 % (2.9-4.9); ALPHA-1-GLOBULINS 0.29 GM/DL (0.17-0.41); ALPHA-2-GLOBULINS 0.74 GM/DL (0.42-0.99); ALPHA-2-GLOBULINS % 10.6 % (7.1-11.8); BETA-1-GLOBULINS % 14.3 % (4.7-7.2); BETA-2-GLOBULINS 0.21 GM/DL (0.19-0.55); GAMMA GLOBULIN % 9.6 % (11.1-18.8); GAMMA GLOBULINS 0.67 GM/DL (0.65-1.58)
[2018-04-18 00:07] LABS: FREE LAMBDA LIGHT CHAINS SERUM 8.7 mg/L (5.7-26.3); KAPPA/LAMBDA RATIO SERUM 1.38 (0.26-1.65)
== END ==
LOC: M LAB REF 18:08
DX: D47.2 Monoclonal gammopathy (principal)
CPT/HCPCS: 84165

== ENCOUNTER → 2019-08-06 | Outpatient (CLI) | payer MEDICARE ==
[~2019-08-06] MED LIST changes: +BIOT1CAP2 PO; +IPRA6SP; +IRBE150T14 PO; +MUCI600T37 PO; -OXYB10TA PO; +OXYB10TA2 PO; +PRED10TA2 PO; +SPIR12.9; +TRAZ-252 PO; -TRAZ50TA11 PO; -VITA1CAP40 PO; +VITA50005 PO
--- NOTE | 2019-08-06 14:21 | REP ---
LOW DOSE LUNG SCREENING CT EXAM: Axial low dose lung screening CT exam is accomplished without the use of intravenous contrast and compared to prior study of 11/04/2017. Once again there are multiple tiny calcified granulomas in the right lower lobe. Scattered interstitial fibrotic scarring is seen bilaterally. No suspicious nodular opacity is seen in either lung. The heart is not significantly enlarged. There does appear to be mild pericardial fluid anteriorly. No pleural fluid is seen. Mediastinal contours are unremarkable. Thoracic aorta appears normal in caliber There are degenerative changes of the spine. IMPRESSION: Multiple calcified granulomas in the right lower lobe. Scattered fibrotic scarring. No suspicious nodular opacity. Lung-RADS category 2, benign. Followup screening CT of the lungs is recommended in 1 year. Electronically Signed by Cristino Babin MD 08/06/2019 03:22 P
== END ==
LOC: M RAD 12:33
PROVIDERS: ATTEND Internal Medicine Pulmonary Disease
DX: Z12.2 Encounter for screening for malignant neoplasm of respiratory organs (principal); Z87.891 Personal history of nicotine dependence; J84.10 Pulmonary fibrosis, unspecified

== ENCOUNTER → 2021-06-20 | Outpatient (CLI) | payer MEDICARE ==
[~2021-06-20] MED LIST changes: -ASPI81TA85 PO; +ASPI81TA86 PO; +BIOT5CAP PO; -DOXY100T16 PO; +DOXY100T27 PO; +ECOT81TA5 PO; +ERGO500029 PO; +LOPE-39 PO; +MAGN400T2 PO; -OXYB10TA2 PO; +OXYB10TA23 PO; +ZINC50TA17 PO
== END ==
LOC: M RAD 11:04
PROVIDERS: ATTEND Physician Assistant
DX: Z12.2 Encounter for screening for malignant neoplasm of respiratory organs (principal); Z87.891 Personal history of nicotine dependence

== ENCOUNTER → 2022-03-24 | Outpatient (REF) | payer MEDICARE ==
[~2022-03-24] MED LIST changes: +CHLO1TAB35 PO; -CORITAB5 PO
[2022-03-24 13:54] LABS: CHOLESTEROL RISK RATIO 2.211 (<5); THYROID STIMULATING HORMONE 3.21 uIU/ML (0.358-3.740)
[2022-03-24 13:57] LABS: TOTAL 25(OH) VITAMIN D 95.6 NG/ML (30.0-100.0)
== END ==
LOC: M LAB REF 12:51
PROVIDERS: ATTEND Family Medicine
DX: Z00.00 Encounter for general adult medical examination without abnormal findings (principal); E55.9 Vitamin D deficiency, unspecified; M85.80 Other specified disorders of bone density and structure, unspecified site

== ENCOUNTER 2023-01-01 14:17 | Inpatient (IN) | payer MEDICARE ==
[~2023-01-01] VITALS: Ht 160 cm; Wt 62.9 kg
[~2023-01-01 14:17] MED LIST changes: +BUDE10.7 INH
[2023-01-01 15:42] LABS: BASO # 0.1 10^3/uL (0.0-0.2); EOS # 0.1 10^3/uL (0.0-0.5); EOS % 2.1 % (0.0-3.0); HEMATOCRIT 38.2 % (36.0-47.0); HEMOGLOBIN 11.9 g/dl (12.0-15.5); MEAN CORPUSCULAR HEMOGLOBIN 28.1 pg (27.0-33.0); MEAN CORPUSCULAR HGB CONC 31.2 g/dl (32.0-36.5); MEAN CORPUSCULAR VOLUME 90.3 fl (80.0-96.0); MONO # 0.4 10^3/uL (0.0-0.8); MONO % 6.9 % (2.0-8.0); NEUTROPHILS # 3.6 10^3/uL (1.5-8.5); NEUTROPHILS % 69.6 % (36.0-66.0); PLATELET COUNT, AUTOMATED 201 10^3/uL (150-450); RED BLOOD COUNT 4.23 10^6/uL (4.00-5.40); WHITE BLOOD COUNT 5.2 10^3/uL (4.0-10.0)
[2023-01-01 16:13] LABS: CPK CREATINE PHOSPHOKINASE 138 U/L (34-145)
[2023-01-01 16:19] LABS: RSV AMPLIFICATION NEGATIVE (NEGATIVE)
[2023-01-01 16:30] LABS: ALBUMIN 3.4 G/DL (3.2-5.2); ALKALINE PHOSPHATASE 71 U/L (46-116); ALT/SGPT 65 U/L (7.0-40); AST/SGOT 43 U/L (<34); BILIRUBIN,DIRECT 0.3 MG/DL (<0.4); BILIRUBIN,TOTAL 1.2 MG/DL (0.3-1.2); BLOOD UREA NITROGEN 22 MG/DL (9-23); CALCIUM LEVEL 9.1 MG/DL (8.3-10.6); CARBON DIOXIDE LEVEL 32 MMOL/L (20-31); CHLORIDE LEVEL 103 MMOL/L (98-107); CK-MB VALUE MASS 3.8 NG/ML (<3.6); CREATININE FOR GFR 0.73 MG/DL (0.55-1.30); FREE T4 1.06 NG/DL (0.89-1.76); GLOMERULAR FILTRATION RATE > 60.0 (>32); GLUCOSE, FASTING 88 MG/DL (74-106); MB/CK RELATIVE INDEX 2.75 (< OR =4); POTASSIUM SERUM 2.9 MMOL/L (3.5-5.1); SODIUM LEVEL 143 MMOL/L (136-145); THYROID STIMULATING HORMONE 4.622 uIU/ML (0.55-4.78); TOTAL PROTEIN 6.2 G/DL (5.7-8.2)
[2023-01-01] MEDS ORDERED: KCL 10MEQ/100ML SWI (KRUN) 10 MEQ in IV 1 EA IV ONE (16:35)
[2023-01-01] MEDS ORDERED: POTASSIUM CHLORIDE 10MEQ SR TABLET PO ONE (16:35)
[2023-01-01] MEDS ORDERED: ISOVUE-370 76% 100ML VIAL As Ordered ONE (16:49)
[2023-01-01 17:28] LABS: CK-MB VALUE MASS 3.7 NG/ML (<3.6)
[2023-01-01 17:30] LABS: MB/CK RELATIVE INDEX 2.72 (< OR =4)
[2023-01-01] MEDS ORDERED: ISOSORBIDE DIN (ISORDIL) 10MG TAB PO SCH (18:40)
[2023-01-01] MEDS ORDERED: ASPIRIN 81MG CHEW TABLET PO ONE (18:40)
[2023-01-01] MEDS ORDERED: ENOXAPARIN 40MG/0.4ML SYRINGE (J1650 PER 10MG) SC ONE (18:40)
[2023-01-01] MEDS ORDERED: traZODone 100 MG TAB PO PRN (18:40)
[2023-01-01] MEDS ORDERED: ATORVASTATIN 20 MG TAB PO ONE (18:45)
[2023-01-01] MEDS ORDERED: hydrALAZINE 20MG/ML 1ML VIAL IV SCH (18:50)
[2023-01-01] MEDS ORDERED: hydrALAZINE 20MG/ML 1ML VIAL IV STA (19:01)
[2023-01-01] MEDS ORDERED: cloNIDine 0.1MG TABLET PO STA (19:02)
[2023-01-01] MEDS ORDERED: IPRATROPIUM 0.5MG/ALBUTEROL 2.5MG INH SOL UD 3ML (DUONEB) NEB ONE (19:05)
[2023-01-01] MEDS ORDERED: methylPREDNISolone 125MG 2ML VIAL IV ONE (19:05)
[2023-01-01] MEDS ORDERED: IPRATROPIUM 0.5MG/ALBUTEROL 2.5MG INH SOL UD 3ML (DUONEB) NEB PRN (19:05)
[2023-01-01] MEDS: BUDESONIDE 0.5 MG/2 ML INHALATION SUSPENSION INH SCH (20:00)
[2023-01-01] MEDS ORDERED: IPRA6SP NARES (21:00)
[2023-01-01] MEDS ORDERED: lisinopriL 5 MG TAB PO SCH (21:00)
[2023-01-01] MEDS ORDERED: HOME MED LIST COMPLETE! XX SCH (21:00)
[2023-01-01] MEDS ORDERED: BIOT1000 PO (21:00)
[2023-01-01] MEDS ORDERED: DOXYCYCLINE HYCLATE 100 MG in D5W MINI-BAG PLUS 100 ML IV SCH (21:00)
[2023-01-01] MEDS ORDERED: ECOT81TA5 PO (21:00)
[2023-01-01] MEDS ORDERED: ALBU6.7H6 INH (21:00)
[2023-01-01] MEDS ORDERED: VITA100T59 PO (21:00)
[2023-01-01 21:15] VITALS: BP 109/51
[2023-01-01] MEDS: LACTOBACILLUS ACIDOPHILUS CAP (BACID) PO SCH (21:54)
[2023-01-01] MEDS: IPRATROPIUM 0.5MG/ALBUTEROL 2.5MG INH SOL UD 3ML (DUONEB) NEB SCH (23:29)
[2023-01-02] VITALS: BP 123/60
[2023-01-02] MEDS: ISOSORBIDE DIN. (ISORDIL) 20 MG TAB PO SCH ×2 (00:30→05:56)
[2023-01-02 00:48] LABS: MAGNESIUM LEVEL 2.2 MG/DL (1.8-2.4); POTASSIUM SERUM 3.3 MMOL/L (3.5-5.1)
[2023-01-02 00:50] LABS: CK-MB VALUE MASS 2.8 NG/ML (<3.6)
[2023-01-02] MEDS: IPRATROPIUM 0.5MG/ALBUTEROL 2.5MG INH SOL UD 3ML (DUONEB) NEB SCH ×3 (03:05→12:02)
[2023-01-02 04:00] VITALS: BP 114/59
[2023-01-02 06:48] LABS: HEMATOCRIT 36.6 % (36.0-47.0); HEMOGLOBIN 11.5 g/dl (12.0-15.5); MEAN CORPUSCULAR HEMOGLOBIN 28.3 pg (27.0-33.0); MEAN CORPUSCULAR HGB CONC 31.4 g/dl (32.0-36.5); MEAN CORPUSCULAR VOLUME 89.9 fl (80.0-96.0); PLATELET COUNT, AUTOMATED 202 10^3/uL (150-450); RED BLOOD COUNT 4.07 10^6/uL (4.00-5.40); WHITE BLOOD COUNT 4.6 10^3/uL (4.0-10.0)
[2023-01-02 07:15] LABS: CK-MB VALUE MASS 2.8 NG/ML (<3.6)
[2023-01-02 07:16] LABS: MB/CK RELATIVE INDEX 2.5 (< OR =4)
[2023-01-02] MEDS ORDERED: methylPREDNISolone 40MG 1ML VIAL IV SCH (08:00)
[2023-01-02 08:06] LABS: ALBUMIN 3.1 G/DL (3.2-5.2); ALKALINE PHOSPHATASE 66 U/L (46-116); ALT/SGPT 54 U/L (7.0-40); AST/SGOT 34 U/L (<34); BILIRUBIN,DIRECT 0.3 MG/DL (<0.4); BILIRUBIN,TOTAL 0.9 MG/DL (0.3-1.2); BLOOD UREA NITROGEN 23 MG/DL (9-23); CALCIUM LEVEL 8.7 MG/DL (8.3-10.6); CARBON DIOXIDE LEVEL 27 MMOL/L (20-31); CHLORIDE LEVEL 101 MMOL/L (98-107); CHOLESTEROL LEVEL 176 MG/DL (<200); CHOLESTEROL RISK RATIO 2.21 (<5); CREATININE FOR GFR 0.78 MG/DL (0.55-1.30); GLOMERULAR FILTRATION RATE > 60.0 (>32); GLUCOSE, FASTING 170 MG/DL (74-106); HDL CHOLESTEROL 79.6 MG/DL (>40); MAGNESIUM LEVEL 2.1 MG/DL (1.8-2.4); NON-HDL-C 96 MG/DL; POTASSIUM SERUM 3.3 MMOL/L (3.5-5.1); SODIUM LEVEL 139 MMOL/L (136-145); TOTAL PROTEIN 5.8 G/DL (5.7-8.2); TRIGLYCERIDES LEVEL 37 MG/DL (<150)
[2023-01-02 08:16] VITALS: BP 120/57
[2023-01-02 08:43] LABS: LYMPHOCYTES 7 % (16-44); NEUTROPHILS 93 % (28-66); PLATELET ESTIMATE NORMAL (NORMAL)
[2023-01-02 08:44] LABS: OVALOCYTES 1+
[2023-01-02] MEDS ORDERED: IRBESARTAN 150MG TAB PO SCH (09:00)
[2023-01-02] MEDS ORDERED: DOXYCYCLINE HYCLATE 100MG TABLET PO SCH (09:00)
[2023-01-02] MEDS ORDERED: LOSARTAN 50MG TABLET PO SCH (09:00)
[2023-01-02] MEDS ORDERED: oxyBUTYnin 5 MG TAB PO SCH (09:00)
[2023-01-02] MEDS ORDERED: ENOXAPARIN 40MG/0.4ML SYRINGE (J1650 PER 10MG) SC SCH (09:00)
[2023-01-02] MEDS ORDERED: oxyBUTYnin *DITROPAN XL* 5 MG TABCR PO SCH (09:00)
[2023-01-02] MEDS ORDERED: MULTIVITAMINS/MINERALS THERAP 1 TAB PO SCH (09:00)
[2023-01-02] MEDS ORDERED: hydroCHLOROthiazide 12.5 MG CAPSULE PO SCH (09:00)
[2023-01-02] MEDS ORDERED: ASPIRIN 81MG CHEW TABLET PO SCH (09:00)
[2023-01-02] MEDS ORDERED: MAGNESIUM OXIDE 400MG TAB (MAG-OX) PO SCH ×2 (09:00)
[2023-01-02] MEDS: BUDESONIDE 0.5 MG/2 ML INHALATION SUSPENSION INH SCH (09:01)
[2023-01-02 09:52] VITALS: BP 120/57
[2023-01-02] MEDS: LACTOBACILLUS ACIDOPHILUS CAP (BACID) PO SCH ×2 (09:52→13:15)
[2023-01-02] MEDS ORDERED: POTASSIUM CHLORIDE 10MEQ SR TABLET PO ONE (10:15)
[2023-01-02 11:21] VITALS: BP 118/59
[2023-01-02 12:48] LABS: CK-MB VALUE MASS 3.7 NG/ML (<3.6)
[2023-01-02 12:55] LABS: MB/CK RELATIVE INDEX 2.66 (< OR =4)
[2023-01-02] MEDS ORDERED: AMLO25TA PO (14:10)
[2023-01-02] MEDS ORDERED: ATORVASTATIN 20 MG TAB PO SCH (21:00)
== END 2023-01-02 16:17 | disposition home or self-care (01) | DRG 305 ==
LOC: M ED 14:17 → M ED INP 18:32 → M PCU 20:59
PROVIDERS: ADMIT General Practice; ATTEND Internal Medicine
DX: I16.0 Hypertensive urgency (principal); I31.9 Disease of pericardium, unspecified; J44.1 Chronic obstructive pulmonary disease with (acute) exacerbation; I10 Essential (primary) hypertension; K21.9 Gastro-esophageal reflux disease without esophagitis; K57.30 Diverticulosis of large intestine without perforation or abscess without bleeding; G47.00 Insomnia, unspecified; M16.2 Bilateral osteoarthritis resulting from hip dysplasia; Z88.8 Allergy status to other drugs, medicaments and biological substances; Z79.899 Other long term (current) drug therapy; Z79.82 Long term (current) use of aspirin; K64.8 Other hemorrhoids; Z87.891 Personal history of nicotine dependence

== ENCOUNTER 2024-01-25 11:27 | Inpatient (IN) | payer MEDICARE ==
[~2024-01-25] VITALS: Ht 160 cm; Wt 60.6 kg
[~2024-01-25 11:27] MED LIST changes: +ALBU6.7H6 INH; +AMLO25TA PO; +BIOT1000 PO; -BIOT50004 PO; +BIOT5CAP8 PO; +HYDR-3490 PO; +IPRA6SP NARES; +IRBE150T27 PO; +VITA100T59 PO
[2024-01-25 12:31] LABS: BASO % 0.6 % (0.0-1.0); EOS # 0.1 10^3/uL (0.0-0.5); EOS % 1.7 % (0.0-3.0); HEMATOCRIT 37.1 % (36.0-47.0); HEMOGLOBIN 11.8 g/dl (12.0-15.5); LYMPH # 0.8 10^3/uL (1.5-5.0); LYMPH % 10.3 % (24.0-44.0); MEAN CORPUSCULAR HEMOGLOBIN 28.4 pg (27.0-33.0); MEAN CORPUSCULAR HGB CONC 31.8 g/dl (32.0-36.5); MEAN CORPUSCULAR VOLUME 89.2 fl (80.0-96.0); MONO # 0.4 10^3/uL (0.0-0.8); MONO % 5.2 % (2.0-8.0); NEUTROPHILS # 5.9 10^3/uL (1.5-8.5); NEUTROPHILS % 81.8 % (36.0-66.0); PLATELET COUNT, AUTOMATED 227 10^3/uL (150-450); RED BLOOD COUNT 4.16 10^6/uL (4.00-5.40); WHITE BLOOD COUNT 7.3 10^3/uL (4.0-10.0)
[2024-01-25 12:41] LABS: INR 1.05; PROTHROMBIN TIME 13.4 SECONDS (12.5-14.5)
[2024-01-25] MEDS: METOPROLOL 5 MG/5 ML VIAL IV SCH (12:42)
[2024-01-25 12:54] LABS: ALBUMIN 3.4 G/DL (3.2-5.2); BILIRUBIN,DIRECT 0.5 MG/DL (<0.4); CALCIUM LEVEL 9.2 MG/DL (8.3-10.6); CK-MB VALUE MASS 3.3 NG/ML (<3.6); CREATININE FOR GFR 0.97 MG/DL (0.55-1.30); GLOMERULAR FILTRATION RATE 58.5 (>32); POTASSIUM SERUM 3.9 MMOL/L (3.5-5.1); TOTAL PROTEIN 6.3 G/DL (5.7-8.2)
[2024-01-25 12:56] LABS: FREE T4 1.21 NG/DL (0.89-1.76); THYROID STIMULATING HORMONE 6.069 uIU/ML (0.55-4.78)
[2024-01-25 12:59] LABS: MB/CK RELATIVE INDEX 4.17 (< OR =4)
[2024-01-25] MEDS ORDERED: METOPROLOL TART 25 MG TABLET PO ONE (13:00)
[2024-01-25 13:35] LABS: RSV AMPLIFICATION NEGATIVE (NEGATIVE)
[2024-01-25 13:55] LABS: MB/CK RELATIVE INDEX 2.97 (< OR =4)
[2024-01-25] MEDS: NS 500 ML IV ONE (14:03)
[2024-01-25] MEDS ORDERED: AMLO2.5T3 PO (14:49)
[2024-01-25] MEDS ORDERED: RA M500C PO (14:49)
[2024-01-25] MEDS ORDERED: ASPI-615 PO (14:49)
[2024-01-25] MEDS ORDERED: HOME MED LIST COMPLETE! XX SCH (14:50)
[2024-01-25] MEDS ORDERED: ISOVUE-370 76% 100ML VIAL As Ordered ONE (15:05)
[2024-01-25] MEDS: DIGOXIN INJ 0.5 MG/2 ML AMP IV ONE (15:33)
[2024-01-25] MEDS: FUROSEMIDE 20MG/2ML VIAL IV ONE (16:19)
[2024-01-25] MEDS: METOPROLOL TART 25 MG TABLET PO ONE (16:58)
[2024-01-25] MEDS: cefTRIAXone SOD 1 GM in D5W MINI-BAG PLUS 50 ML IV SCH (18:25)
[2024-01-25] MEDS: NS 1,000 ML IV SCH (18:25)
[2024-01-25] MEDS: METOPROLOL TART 25 MG TABLET PO SCH (18:57)
[2024-01-25 19:22] LABS: PROCALCITONIN 0.05 ng/ml
[2024-01-25] MEDS: SYMBICORT 160/4.5MCG INHALER 6GM INH SCH (20:00)
[2024-01-25] MEDS ORDERED: AZITHROMYCIN INJ 500 MG, VIAL MATE ADAPTER 1 EACH in NS 250 ML IV SCH (20:00)
[2024-01-25 20:07] VITALS: BP 128/88; TEMP 97.9; O2SAT 96
[2024-01-25] MEDS: DOXYCYCLINE HYCLATE 100MG TABLET PO SCH (21:17)
[2024-01-25] MEDS: APIXABAN 5 MG TAB (ELIQUIS) PO SCH (21:17)
[2024-01-25] MEDS: DIGOXIN 0.25 MG TAB PO ONE (21:18)
[2024-01-25 23:16] VITALS: BP 117/60; TEMP 98; O2SAT 98
[2024-01-26] VITALS (29 sets, daily range): BP systolic 104–157; BP diastolic 55–90; TEMP 97.1–99.5; O2SAT 82–100
[2024-01-26 06:02] LABS: HEMATOCRIT 34.3 % (36.0-47.0); MEAN CORPUSCULAR HEMOGLOBIN 28.8 pg (27.0-33.0); MEAN CORPUSCULAR HGB CONC 32.1 g/dl (32.0-36.5); MEAN CORPUSCULAR VOLUME 89.8 fl (80.0-96.0); PLATELET COUNT, AUTOMATED 196 10^3/uL (150-450); RED BLOOD COUNT 3.82 10^6/uL (4.00-5.40); WHITE BLOOD COUNT 5.5 10^3/uL (4.0-10.0)
[2024-01-26] MEDS: DIGOXIN 0.25 MG TAB PO ONE (06:20)
[2024-01-26 06:29] LABS: CALCIUM LEVEL 8.5 MG/DL (8.3-10.6); CREATININE FOR GFR 0.96 MG/DL (0.55-1.30); GLOMERULAR FILTRATION RATE 59.2 (>32); MAGNESIUM LEVEL 1.8 MG/DL (1.8-2.4); POTASSIUM SERUM 3.7 MMOL/L (3.5-5.1)
[2024-01-26] MEDS: IPRATROPIUM 0.5MG/ALBUTEROL 2.5MG INH SOL UD 3ML (DUONEB) NEB PRN (06:32)
[2024-01-26] MEDS: TIOTROPIUM INHALER/CAPSULE (SPIRIVA) INH SCH (07:53)
[2024-01-26] MEDS ORDERED: DIGO0.123 PO (09:13)
[2024-01-26] MEDS ORDERED: LOPR1TAB6 PO (09:13)
[2024-01-26] MEDS ORDERED: ELIQ5TAB PO (09:13)
[2024-01-26] MEDS: METOPROLOL TART 25 MG TABLET PO ONE (10:24)
[2024-01-26] MEDS: METOPROLOL TART 50 MG TAB PO SCH (21:39)
[2024-01-27] VITALS (17 sets, daily range): BP systolic 112–127; BP diastolic 64–74; TEMP 97.6–97.8; O2SAT 88–100
[2024-01-27 06:35] LABS: BLOOD UREA NITROGEN 18 MG/DL (9-23); CALCIUM LEVEL 8.9 MG/DL (8.3-10.6); CARBON DIOXIDE LEVEL 30 MMOL/L (20-31); CHLORIDE LEVEL 106 MMOL/L (98-107); GLOMERULAR FILTRATION RATE > 60.0 (>32); GLUCOSE, FASTING 89 MG/DL (74-106); MAGNESIUM LEVEL 1.7 MG/DL (1.8-2.4); POTASSIUM SERUM 3.7 MMOL/L (3.5-5.1); SODIUM LEVEL 139 MMOL/L (136-145)
[2024-01-27] MEDS: MAG SULF 1GM/100ML (MAG RUN) 1 GM in IV 1 EA IV SCH (08:19)
[2024-01-27] MEDS: DIGOXIN 0.25 MG TAB PO SCH (09:00)
[2024-01-27] MEDS ORDERED: METO1TAB87 PO (09:03)
[2024-01-27] MEDS ORDERED: CEFP100T PO (09:04)
[2024-01-27] MEDS ORDERED: DOXY100C3 PO (09:04)
[2024-01-27] MEDS ORDERED: PRED10TA2 PO (22:06)
[2024-01-27] MEDS ORDERED: NEBU1EAC78 MC (22:06)
[2024-01-27] MEDS ORDERED: NEBUKIT5 XX (22:06)
[2024-01-27] MEDS ORDERED: IPRA0.00 INH (22:06)
== END 2024-01-27 13:20 | disposition home or self-care (01) | DRG 308 ==
LOC: M ED 11:27 → M ED INP 17:12 → M PCU 20:01
PROVIDERS: ADMIT Internal Medicine; ATTEND Internal Medicine
DX: I48.91 Unspecified atrial fibrillation (principal); J15.69 Pneumonia due to other Gram-negative bacteria; J96.21 Acute and chronic respiratory failure with hypoxia; J44.9 Chronic obstructive pulmonary disease, unspecified; I10 Essential (primary) hypertension; Z79.899 Other long term (current) drug therapy; G47.00 Insomnia, unspecified; R32 Unspecified urinary incontinence; Z79.82 Long term (current) use of aspirin; Z88.8 Allergy status to other drugs, medicaments and biological substances; K21.9 Gastro-esophageal reflux disease without esophagitis; M16.0 Bilateral primary osteoarthritis of hip; K57.90 Diverticulosis of intestine, part unspecified, without perforation or abscess without bleeding; K64.8 Other hemorrhoids

== ENCOUNTER 2024-01-27 20:28 | Emergency (ER) | payer MEDICARE ==
[~2024-01-27] VITALS: Ht 167.6 cm; Wt 64.4 kg
[~2024-01-27 20:28] MED LIST changes: +AMLO2.5T3 PO; +ASPI-615 PO; +CEFP100T PO; +DIGO0.123 PO; +DOXY100C3 PO; +ELIQ5TAB PO; +LOPR1TAB6 PO; +METO1TAB87 PO; +RA M500C PO
[2024-01-27] MEDS: IPRATROPIUM 0.5MG/ALBUTEROL 2.5MG INH SOL UD 3ML (DUONEB) NEB PRN (21:01)
[2024-01-27 21:24] LABS: ABG BASE EXCESS 0.7 (-2.0-2.0); ABG O2 SATURATION 96.4 % (95.0-99.0); ABG PARTIAL PRESSURE O2 82.3 mmHg (75.0-100.0); ABG STANDARD HCO3 25.1 MMOL/L. (22.0-26.0); ABG TOTAL CO2 27.3 MMOL/L (23.0-31.0); ABG pH (ARTERIAL) 7.389 UNITS (7.350-7.450)
[2024-01-27 21:25] LABS: C REACTIVE PROTEIN QUANTITATIV < 0.40 MG/DL (<1.0); CK-MB VALUE MASS 1.4 NG/ML (<3.6)
[2024-01-27 21:27] LABS: CPK CREATINE PHOSPHOKINASE 73 U/L (34-145); MB/CK RELATIVE INDEX 1.91 (< OR =4)
[2024-01-27 21:28] LABS: THYROXINE (T4) 11.2 UG/DL (4.5-10.9)
[2024-01-27 21:29] LABS: THYROID STIMULATING HORMONE 7.564 uIU/ML (0.55-4.78)
[2024-01-27 21:33] LABS: PROCALCITONIN <0.04 ng/ml
[2024-01-27 21:34] LABS: RSV AMPLIFICATION NEGATIVE (NEGATIVE)
[2024-01-27] MEDS: NS 500 ML IV ONE (21:34)
[2024-01-27 21:36] LABS: ALBUMIN 3.2 G/DL (3.2-5.2); ALKALINE PHOSPHATASE 78 U/L (46-116); ALT/SGPT 45 U/L (7.0-40); AST/SGOT 22 U/L (<34); BILIRUBIN,DIRECT 0.4 MG/DL (<0.4); BILIRUBIN,TOTAL 0.7 MG/DL (0.3-1.2); BLOOD UREA NITROGEN 20 MG/DL (9-23); CALCIUM LEVEL 8.5 MG/DL (8.3-10.6); CARBON DIOXIDE LEVEL 25 MMOL/L (20-31); CHLORIDE LEVEL 107 MMOL/L (98-107); CREATININE FOR GFR 0.85 MG/DL (0.55-1.30); GLOMERULAR FILTRATION RATE > 60.0 (>32); GLUCOSE, FASTING 156 MG/DL (74-106); POTASSIUM SERUM 4.7 MMOL/L (3.5-5.1); SODIUM LEVEL 138 MMOL/L (136-145); TOTAL PROTEIN 5.9 G/DL (5.7-8.2)
[2024-01-27 21:37] LABS: BASO # 0.1 10^3/uL (0.0-0.2); BASO % 0.8 % (0.0-1.0); EOS # 0.2 10^3/uL (0.0-0.5); EOS % 2.7 % (0.0-3.0); HEMATOCRIT 36.5 % (36.0-47.0); HEMOGLOBIN 11.3 g/dl (12.0-15.5); LYMPH # 0.8 10^3/uL (1.5-5.0); LYMPH % 9.4 % (24.0-44.0); MEAN CORPUSCULAR HEMOGLOBIN 28.3 pg (27.0-33.0); MEAN CORPUSCULAR VOLUME 91.5 fl (80.0-96.0); MONO # 0.6 10^3/uL (0.0-0.8); MONO % 6.7 % (2.0-8.0); NEUTROPHILS % 79.9 % (36.0-66.0); PLATELET COUNT, AUTOMATED 246 10^3/uL (150-450); RED BLOOD COUNT 3.99 10^6/uL (4.00-5.40); WHITE BLOOD COUNT 8.8 10^3/uL (4.0-10.0)
[2024-01-27 21:48] LABS: INR 1.53; PROTHROMBIN TIME 17.9 SECONDS (12.5-14.5)
[2024-01-27] MEDS ORDERED: IPRA0.00 INH (22:06)
[2024-01-27] MEDS ORDERED: NEBUKIT5 XX (22:06)
[2024-01-27] MEDS ORDERED: NEBU1EAC78 MC (22:06)
[2024-01-27] MEDS ORDERED: PRED10TA2 PO (22:06)
[2024-01-27 23:45] VITALS: TEMP 98
[2024-01-28] MEDS: IPRATROPIUM 0.5MG/ALBUTEROL 2.5MG INH SOL UD 3ML (DUONEB) NEB ONE (00:23)
[2024-01-28 00:30] VITALS: BP 137/64; O2SAT 100
== END 2024-01-28 01:18 | disposition home or self-care (01) ==
LOC: M ED 20:28 → EDBD 20:28 → M ED 01-28 01:18
DX: J44.1 Chronic obstructive pulmonary disease with (acute) exacerbation (principal); I10 Essential (primary) hypertension; R00.1 Bradycardia, unspecified; Z88.8 Allergy status to other drugs, medicaments and biological substances; Z79.52 Long term (current) use of systemic steroids; Z79.01 Long term (current) use of anticoagulants; Z79.899 Other long term (current) drug therapy

== ENCOUNTER 2024-02-04 17:15 | Inpatient (IN) | payer MEDICARE ==
[~2024-02-04] VITALS: Ht 160 cm; Wt 58.9 kg
[~2024-02-04 17:15] MED LIST changes: +IPRA0.00 INH; +NEBU1EAC78 MC; +NEBUKIT5 XX
[2024-02-04 18:09] LABS: BASO % 0.1 % (0.0-1.0); EOS % 0.4 % (0.0-3.0); HEMATOCRIT 41.6 % (36.0-47.0); LYMPH # 0.7 10^3/uL (1.5-5.0); LYMPH % 6.5 % (24.0-44.0); MEAN CORPUSCULAR HEMOGLOBIN 28.4 pg (27.0-33.0); MEAN CORPUSCULAR HGB CONC 31.3 g/dl (32.0-36.5); MEAN CORPUSCULAR VOLUME 90.8 fl (80.0-96.0); MONO # 0.7 10^3/uL (0.0-0.8); MONO % 6.8 % (2.0-8.0); NEUTROPHILS % 85.7 % (36.0-66.0); PLATELET COUNT, AUTOMATED 297 10^3/uL (150-450); RED BLOOD COUNT 4.58 10^6/uL (4.00-5.40); WHITE BLOOD COUNT 10.6 10^3/uL (4.0-10.0)
[2024-02-04 18:29] LABS: INR 1.24; PARTIAL THROMBOPLASTIN TIME 24.4 SECONDS (24.8-34.2); PROTHROMBIN TIME 15.3 SECONDS (12.5-14.5)
[2024-02-04] MEDS ORDERED: METO37.5 PO (18:38)
[2024-02-04] MEDS ORDERED: FURO20TA2 (18:38)
[2024-02-04 18:39] LABS: LIPASE 23 U/L (12-53)
[2024-02-04 18:42] LABS: ALBUMIN 3.3 G/DL (3.2-5.2); ALKALINE PHOSPHATASE 69 U/L (46-116); ALT/SGPT 39 U/L (7.0-40); AST/SGOT 26 U/L (<34); BILIRUBIN,DIRECT 0.4 MG/DL (<0.4); BILIRUBIN,TOTAL 0.8 MG/DL (0.3-1.2); BLOOD UREA NITROGEN 42 MG/DL (9-23); CARBON DIOXIDE LEVEL 34 MMOL/L (20-31); CHLORIDE LEVEL 99 MMOL/L (98-107); CK-MB VALUE MASS 1.8 NG/ML (<3.6); CPK CREATINE PHOSPHOKINASE 60 U/L (34-145); CREATININE FOR GFR 1.14 MG/DL (0.55-1.30); GLOMERULAR FILTRATION RATE 48.6 (>32); GLUCOSE, FASTING 122 MG/DL (74-106); SODIUM LEVEL 138 MMOL/L (136-145); TOTAL PROTEIN 6.2 G/DL (5.7-8.2)
[2024-02-04 18:43] LABS: THYROID STIMULATING HORMONE 3.979 uIU/ML (0.55-4.78)
[2024-02-04 18:44] LABS: FREE T4 1.15 NG/DL (0.89-1.76)
[2024-02-04 19:31] LABS: CK-MB VALUE MASS 1.6 NG/ML (<3.6)
[2024-02-04] MEDS: METOPROLOL 5 MG/5 ML VIAL IV STA (19:31)
[2024-02-04] MEDS: METOPROLOL TART 25 MG TABLET PO ONE ×2 (19:31→20:34)
[2024-02-04] MEDS: FUROSEMIDE 20MG/2ML VIAL IV ONE (19:31)
[2024-02-04 19:39] LABS: MB/CK RELATIVE INDEX 5.33 (< OR =4)
[2024-02-04 19:41] LABS: C REACTIVE PROTEIN QUANTITATIV < 0.40 MG/DL (<1.0)
[2024-02-04 19:54] LABS: PROCALCITONIN 0.04 ng/ml
[2024-02-04] MEDS ORDERED: METO25TA4 PO (22:38)
[2024-02-04] MEDS ORDERED: FURO20TA2 PO (22:38)
[2024-02-04] MEDS ORDERED: IPRA0.00 INH (22:38)
[2024-02-04] MEDS ORDERED: MAGN500T2 PO (22:38)
[2024-02-04] MEDS ORDERED: ALBU8.5H INH (22:38)
[2024-02-04] MEDS ORDERED: POTA1TAB21 PO (22:38)
[2024-02-04] MEDS ORDERED: ELIQ5TAB PO (22:38)
[2024-02-04] MEDS ORDERED: MED REC IN PROGRESS XX SCH (22:55)
[2024-02-04] MEDS ORDERED: IPRATROPIUM 0.5MG/ALBUTEROL 2.5MG INH SOL UD 3ML (DUONEB) INH PRN (23:20)
[2024-02-04] MEDS ORDERED: ALBUTEROL 90 MCG/ACT 8GM HFA INHALER INH PRN (23:20)
[2024-02-04] MEDS ORDERED: HYDROMORPHONE HCL 0.5 MG/ 0.5 ML SYRINGE IV PRN (23:20)
[2024-02-04] MEDS ORDERED: traZODone 100 MG TAB PO PRN (23:20)
[2024-02-04] MEDS ORDERED: ACETAMINOPHEN TAB 650MG DOSE (2X325MG) PO PRN (23:20)
[2024-02-04 23:42] VITALS: BP 118/78; TEMP 97.8; O2SAT 94
[2024-02-04] MEDS: LevoFLOXacin 750 MG TABLET PO SCH (23:56)
[2024-02-05 03:52] VITALS: BP 121/72; TEMP 97; O2SAT 98
[2024-02-05] MEDS: METOPROLOL TART 50 MG TAB PO SCH (04:14)
[2024-02-05 06:18] LABS: CALCIUM LEVEL 8.5 MG/DL (8.3-10.6); CREATININE FOR GFR 1.12 MG/DL (0.55-1.30); GLOMERULAR FILTRATION RATE 49.6 (>32); POTASSIUM SERUM 4.1 MMOL/L (3.5-5.1)
[2024-02-05 07:41] LABS: BASO % 0.1 % (0.0-1.0); EOS # 0.2 10^3/uL (0.0-0.5); EOS % 2.1 % (0.0-3.0); HEMATOCRIT 37.2 % (36.0-47.0); HEMOGLOBIN 11.5 g/dl (12.0-15.5); LYMPH # 1.9 10^3/uL (1.5-5.0); LYMPH % 21.4 % (24.0-44.0); MEAN CORPUSCULAR HEMOGLOBIN 28.3 pg (27.0-33.0); MEAN CORPUSCULAR HGB CONC 30.9 g/dl (32.0-36.5); MEAN CORPUSCULAR VOLUME 91.6 fl (80.0-96.0); MONO # 0.8 10^3/uL (0.0-0.8); MONO % 8.9 % (2.0-8.0); NEUTROPHILS # 5.9 10^3/uL (1.5-8.5); PLATELET COUNT, AUTOMATED 239 10^3/uL (150-450); RED BLOOD COUNT 4.06 10^6/uL (4.00-5.40); WHITE BLOOD COUNT 8.8 10^3/uL (4.0-10.0)
[2024-02-05 08:19] VITALS: BP 109/72; TEMP 97.7; O2SAT 97
[2024-02-05 09:00] VITALS: BP 101/57
[2024-02-05] MEDS: METOPROLOL TART 50 MG TAB PO ONE (09:00)
[2024-02-05] MEDS: oxyBUTYnin *DITROPAN XL* 5 MG TABCR PO SCH (09:01)
[2024-02-05] MEDS ORDERED: HOME MED LIST COMPLETE! XX SCH (09:05)
[2024-02-05] MEDS: DIGOXIN INJ 0.5 MG/2 ML AMP IV STA (09:48)
[2024-02-05 11:45] VITALS: BP 115/67; TEMP 98.1; O2SAT 94
[2024-02-05] MEDS ORDERED: ACETAMINOPHEN 500 MG TAB PO PRN (12:05)
[2024-02-05] MEDS ORDERED: oxyCODONE 5MG TAB PO PRN (12:05)
[2024-02-05] MEDS: FUROSEMIDE 20 MG TAB PO SCH (12:53)
[2024-02-05] MEDS: DICLOFENAC EPOLAMINE 1.3% PATCH TOP SCH (12:53)
[2024-02-05] MEDS: APIXABAN 2.5 MG TAB (ELIQUIS) PO SCH (12:56)
[2024-02-05] MEDS: DIGOXIN INJ 0.5 MG/2 ML AMP IV ONE ×2 (14:45→20:28)
[2024-02-05 15:52] VITALS: BP 116/61; TEMP 97.8; O2SAT 99
[2024-02-05] MEDS: SYMBICORT 160/4.5MCG INHALER 6GM INH SCH (19:47)
[2024-02-05 20:09] VITALS: BP 129/71; TEMP 97.8; O2SAT 98
[2024-02-05] MEDS ORDERED: METOPROLOL TARTRATE 100MG TAB PO SCH (21:00)
[2024-02-05] MEDS: METOPROLOL TART 25 MG TABLET PO SCH (21:15)
[2024-02-06 00:12] VITALS: BP 117/68; TEMP 97.4; O2SAT 90
[2024-02-06 04:00] VITALS: BP 110/72; TEMP 97.3; O2SAT 95
[2024-02-06 08:00] VITALS: BP 129/82; TEMP 97.7; O2SAT 97
[2024-02-06] MEDS ORDERED: METOPROLOL TART 25 MG TABLET PO SCH (09:00)
[2024-02-06] MEDS: METOPROLOL TART 50 MG TAB PO SCH (09:43)
[2024-02-06] MEDS: LIDOCAINE 5% (LIDODERM) PATCH TD SCH (09:44)
[2024-02-06] MEDS ORDERED: LOPR1TAB6 PO (10:25)
[2024-02-06] MEDS ORDERED: LIDO5TD TD (10:25)
[2024-02-06 10:45] VITALS: BP 124/71; O2SAT 91
== END 2024-02-06 11:48 | disposition home or self-care (01) | DRG 313 ==
LOC: M ED 17:15 → M ED INP 22:10 → ENRESERV 22:23 → M PCU 23:36
PROVIDERS: ADMIT Internal Medicine; ATTEND Student in an Organized Health Care Education/Training Program
DX: R07.89 Other chest pain (principal); J90 Pleural effusion, not elsewhere classified; J43.9 Emphysema, unspecified; I48.91 Unspecified atrial fibrillation; R91.1 Solitary pulmonary nodule; I89.0 Lymphedema, not elsewhere classified; Z87.891 Personal history of nicotine dependence; N32.81 Overactive bladder; I25.10 Atherosclerotic heart disease of native coronary artery without angina pectoris; Z88.8 Allergy status to other drugs, medicaments and biological substances; Z79.899 Other long term (current) drug therapy

== ENCOUNTER → 2024-03-06 | Outpatient (CLI) | payer MEDICARE ==
[~2024-03-06] MED LIST changes: +ALBU8.5H INH; +FURO20TA2; +FURO20TA2 PO; +LIDO5TD TD; +MAGN500T2 PO; +METO25TA4 PO; +METO37.5 PO; +POTA1TAB21 PO
== END ==
LOC: M WUC 14:05
PROVIDERS: ATTEND Internal Medicine Pulmonary Disease
DX: J90 Pleural effusion, not elsewhere classified (principal)

== ENCOUNTER → 2024-05-05 | Outpatient (REF) | payer MEDICARE ==
[~2024-05-05] MED LIST changes: +AMIO200T49 PO; +JARD1TAB PO; +METO50TA7 PO
[2024-05-05 18:12] LABS: CHOLESTEROL RISK RATIO 2.46 (<5); HDL CHOLESTEROL 71.1 MG/DL (>40); LDL CHOLESTEROL 92.5 MG/DL (<100); NON-HDL-C 103.9 MG/DL
== END ==
LOC: M LABWUC 17:11
PROVIDERS: ATTEND Nurse Practitioner Acute Care
DX: I25.10 Atherosclerotic heart disease of native coronary artery without angina pectoris (principal)

== ENCOUNTER 2024-05-08 06:00 | Day surgery (SDC) | payer MEDICARE ==
[~2024-05-08] VITALS: Ht 161.3 cm; Wt 57.2 kg
[2024-05-08] MEDS: LR 1,000 ML IV SCH (06:50)
[2024-05-08] MEDS ORDERED: propofoL 200 MG/20 ML VIAL As Ordered ONE (07:02)
[2024-05-08] MEDS ORDERED: LIDOCAINE 2% 100MG/5ML SDV (FOR ANES.) As Ordered ONE (07:02)
[2024-05-08 09:20] VITALS: BP 130/83; TEMP 98; O2SAT 90
== END 2024-05-08 09:22 | disposition home or self-care (01) ==
LOC: M SDC 06:00
PROVIDERS: ATTEND Internal Medicine Cardiovascular Disease
DX: I48.0 Paroxysmal atrial fibrillation (principal); I10 Essential (primary) hypertension; K21.9 Gastro-esophageal reflux disease without esophagitis; J44.9 Chronic obstructive pulmonary disease, unspecified; I50.9 Heart failure, unspecified; Z79.01 Long term (current) use of anticoagulants; Z79.899 Other long term (current) drug therapy; D47.2 Monoclonal gammopathy

== ENCOUNTER → 2024-05-29 | Outpatient (REF) | payer MEDICARE ==
[2024-05-29 19:11] LABS: THYROID STIMULATING HORMONE 9.64 uIU/ML (0.55-4.78)
[2024-05-29 19:14] LABS: ALBUMIN 3.6 G/DL (3.2-5.2); BILIRUBIN,TOTAL 0.7 MG/DL (0.3-1.2); CALCIUM LEVEL 9.8 MG/DL (8.3-10.6); CREATININE FOR GFR 1.22 MG/DL (0.55-1.30); GLOMERULAR FILTRATION RATE 44.9 (>32); POTASSIUM SERUM 4.1 MMOL/L (3.5-5.1); TOTAL PROTEIN 6.7 G/DL (5.7-8.2)
== END ==
LOC: M LABWUC 18:08
PROVIDERS: ATTEND Nurse Practitioner Acute Care
DX: I48.0 Paroxysmal atrial fibrillation (principal); I50.9 Heart failure, unspecified

== ENCOUNTER → 2024-06-27 | Outpatient (REF) | payer MEDICARE ==
[2024-06-27 19:46] LABS: APPEARANCE, URINE CLOUDY (CLEAR); BACTERIA, URINE AUTO NEGATIVE (NEGATIVE); BILIRUBIN, URINE AUTO NEGATIVE (NEGATIVE); BLOOD, URINE BLOOD 3+ (NEGATIVE); COLOR, URINE AMBER (YELLOW); GLUCOSE, URINE (UA) AUTO 2+ mg/dL (NEGATIVE); KETONE, URINE AUTO NEGATIVE (NEGATIVE); LEUKOCYTE ESTERASE, URINE AUTO NEGATIVE (NEGATIVE); NITRITE, URINE AUTO NEGATIVE (NEGATIVE); PROTEIN, URINE AUTO 2+ mg/dL (NEGATIVE); RBC, URINE AUTO TNTC /HPF (0-3); SPECIFIC GRAVITY URINE AUTO 1.027 (1.002-1.035); SQUAMOUS EPITHELIAL CELL UR AU 0 /HPF (0-6); UROBILINOGEN, URINE AUTO 0.2 mg/dL (0.0-2.0); WBC, URINE AUTO 13 /HPF (0-3)
== END ==
LOC: M LAB REF 18:53
PROVIDERS: ATTEND Physician Assistant
DX: N39.0 Urinary tract infection, site not specified (principal)

== ENCOUNTER → 2024-08-28 | Outpatient (CLI) | payer MEDICARE | LOC: M WUC 12:17 | PROVIDERS: ATTEND Nurse Practitioner Acute Care | DX: I48.0 Paroxysmal atrial fibrillation (principal) ==

== ENCOUNTER → 2024-09-15 | Outpatient (CLI) | payer MEDICARE | LOC: M WHC 13:04 | PROVIDERS: ATTEND Family Medicine | DX: M85.89 Other specified disorders of bone density and structure, multiple sites (principal); M81.0 Age-related osteoporosis without current pathological fracture ==

== ENCOUNTER → 2024-10-31 | Outpatient (CLI) | payer MEDICARE | LOC: M WUC 14:53 | PROVIDERS: ATTEND Nurse Practitioner Acute Care | DX: I48.0 Paroxysmal atrial fibrillation (principal) ==

== ENCOUNTER → 2024-12-30 | Outpatient (REF) | payer MEDICARE ==
[~2024-12-30] MED LIST changes: +ATOR1TAB19; +LEVO75TA4; +SOLI5TAB
== END ==
LOC: M LAB REF 13:14
PROVIDERS: ATTEND Internal Medicine Cardiovascular Disease
DX: I48.0 Paroxysmal atrial fibrillation (principal)

== ENCOUNTER → 2025-05-14 | Outpatient (REF) | payer MEDICARE ==
[~2025-05-14] MED LIST changes: -AMIO200T49 PO; +AMIO200T54 PO; -BIOT1000 PO; +BIOT10002 PO; +BIOT5CAP9 PO; -BIOTCAP PO
[2025-05-14 18:47] LABS: ALT/SGPT 14.0 U/L (7.0-40); AST/SGOT 21.0 U/L (<34); CALCIUM LEVEL 9.4 MG/DL (8.3-10.6); CARBON DIOXIDE LEVEL 31.0 MMOL/L (20-31); CHLORIDE LEVEL 102.0 MMOL/L (98-107); CHOLESTEROL LEVEL 172.0 MG/DL (<200); CHOLESTEROL RISK RATIO 1.93 (<5); CREATININE FOR GFR 1.05 MG/DL (0.55-1.30); GLOMERULAR FILTRATION RATE 52.7 (>32); LDL CHOLESTEROL 71.5 MG/DL (<100); NON-HDL-C 83.3 MG/DL; POTASSIUM SERUM 4.1 MMOL/L (3.5-5.1); SODIUM LEVEL 146.0 MMOL/L (136-145); TRIGLYCERIDES LEVEL 59.0 MG/DL (<150)
== END ==
LOC: M LABWUC 17:40
PROVIDERS: ATTEND Internal Medicine Cardiovascular Disease
DX: E78.5 Hyperlipidemia, unspecified (principal); E03.9 Hypothyroidism, unspecified; I25.10 Atherosclerotic heart disease of native coronary artery without angina pectoris; I10 Essential (primary) hypertension

== ENCOUNTER → 2025-05-21 | Outpatient (CLI) | payer MEDICARE | LOC: M WUC 14:50 | PROVIDERS: ATTEND Internal Medicine Pulmonary Disease | DX: J43.1 Panlobular emphysema (principal) ==

== ENCOUNTER → 2025-08-13 | Outpatient (CLI) | payer MEDICARE, MEDICAID ==
[2025-08-13 18:09] LABS: CHOLESTEROL LEVEL 178.0 MG/DL (<200); CHOLESTEROL RISK RATIO 1.82 (<5); LDL CHOLESTEROL 69.3 MG/DL (<100); NON-HDL-C 80.7 MG/DL; TRIGLYCERIDES LEVEL 57.0 MG/DL (<150)
== END ==
LOC: M WUC 15:33
PROVIDERS: ATTEND Nurse Practitioner Family
DX: E03.8 Other specified hypothyroidism (principal); I25.10 Atherosclerotic heart disease of native coronary artery without angina pectoris

== ENCOUNTER 2025-09-16 10:16 | Day surgery (SDC) | payer MEDICARE, MEDICAID ==
[~2025-09-16] VITALS: Ht 152.4 cm; Wt 61.3 kg
[~2025-09-16 10:16] MED LIST changes: -ATOR1TAB19; +ATOR1TAB19 PO; -LEVO75TA4; +LEVO75TA4 PO; +LIDOCAINE 2% 100 MG/5 ML SDV (FOR ANES.) As Ordered ONE; +LOSA25TA13 PO; -SOLI5TAB; +SOLI5TAB PO
[2025-09-16 12:15] VITALS: TEMP 97.5
[2025-09-16 12:35] VITALS: BP 148/73; O2SAT 96
== END 2025-09-16 12:42 | disposition home or self-care (01) ==
LOC: M OPP 10:16
PROVIDERS: ATTEND Internal Medicine Gastroenterology
DX: Z12.11 Encounter for screening for malignant neoplasm of colon (principal); R19.5 Other fecal abnormalities; D12.3 Benign neoplasm of transverse colon; K57.30 Diverticulosis of large intestine without perforation or abscess without bleeding; K64.0 First degree hemorrhoids; I48.91 Unspecified atrial fibrillation; Z88.8 Allergy status to other drugs, medicaments and biological substances; Z79.51 Long term (current) use of inhaled steroids; Z79.01 Long term (current) use of anticoagulants; Z79.899 Other long term (current) drug therapy; J44.9 Chronic obstructive pulmonary disease, unspecified; Z99.81 Dependence on supplemental oxygen; Z87.891 Personal history of nicotine dependence